=== PATIENT | female | born 1930 | race Caucasian/White ===

== ENCOUNTER 2016-03-13 17:15 | Observation (INO) | payer MEDICARE ==
[~2016-03-13] VITALS: Ht 175.3 cm; Wt 81.8 kg
[~2016-03-13 17:15] MED LIST: ALLEGRA180 MG PO; BACTRIM 400-801 TAB PO; BUPROBAN150 MG PO; CATAPRES0.1 MG PO; CIPRO500 MG PO; COZAAR100 MG PO; DEXILANT60 MG PO; FLOVENT DISKU250 MCG INH; IPRAT-ALBUT 0.5-3 ML UPD; LEVAQUIN500 MG PO; LYRICA100 MG PO; MELATONIN 3 MG1 TAB PO; MYSOLINE250 MG PO; NEURONTIN 300300 MG PO; NORCO 10/325 TA1 TA1 PO; PEPCID20 MG PO; PHENERGAN25 M1 PO; PRILOSEC20 MG PO; PROAIR HFA8.5 GM INH; PROZAC20 MG PO; REMERON15 MG PO; SEPTRA DS TABLE1 TAB PO; SINGULAIR10 MG; TOPROL XL25 MG PO; VITAMIN D31000 UNIT PO; WELLBUTRIN XL150 M1 PO; ZANAFLEX4 MG; ZANAFLEX4 MG PO
[2016-03-13 18:48] LABS: BASOPHILS 0.4 % (0.0-2.0); EOSINOPHILS 3.2 % (0-7); HEMATOCRIT 38.2 % (36.0-48.0); HEMOGLOBIN 12.4 g/dL (12-16); IMMATURE GRANULOCYTES 0.1 % (0-5); LYMPHOCYTES 30.5 % (15-50); MCH 29.8 pg (26.0-34.0); MCHC 32.5 g/dL (31.0-37.0); MCV 91.8 fL (80.0-100.0); MEAN PLATELET VOLUME 11.1 fL (7.4-10.4); MONOCYTES 14.2 % (2-11); NEUTROPHILS 51.6 % (40-80); PLATELET COUNT 194 10x3/uL (130-400); RBC 4.16 10x6/uL (4.00-5.40); RDW 13.7 % (11.5-14.5); WBC 6.8 10x3/uL (4.8-10.8)
[2016-03-13 19:15] LABS: INR 1.05 (0.85-1.17); PROTIME 13.5 SECONDS (11.6-15.0)
[2016-03-13 19:15] LABS: APPEARANCE CLEAR (CLEAR); BACTERIA MODERATE /hpf (NONE SEEN); BILIRUBIN NEGATIVE (NEGATIVE); COLOR YELLOW (YELLOW); GLUCOSE NEGATIVE (NEGATIVE); KETONE NEGATIVE (NEGATIVE); LEUKOCYTE ESTERASE TRACE (NEGATIVE); NITRITE NEGATIVE (NEGATIVE); PROTEIN NEGATIVE (NEGATIVE); RED CELLS - URINE 0-5 /hpf (0-5); UROBILINOGEN NORMAL (NORMAL)
[2016-03-13 19:16] LABS: APTT 28.3 SECONDS (22.8-39.4)
[2016-03-13 19:24] LABS: ALBUMIN 3.3 g/dL (3.4-5.0); BILIRUBIN - TOTAL 0.2 mg/dL (0.2-1.3); CALCIUM 8.3 mg/dL (8.5-10.1); CARBON DIOXIDE 26.8 mmol/L (21.0-32.0); POTASSIUM - SERUM 3.8 mmol/L (3.5-5.1); PROTEIN - SERUM 6.2 g/dL (6.4-8.2)
--- NOTE | 2016-03-13 22:41 | NUR ---
RECEIVED REPORT FROM YAMIL PAN IN ER. WAITING FOR PTS ARRIVAL.
--- NOTE | 2016-03-13 23:27 | NUR ---
PT RECEIVED VIA STRETCHER, AWAKE, ALERT, ORIENTED, REQUIRES MINIMAL ASSIST WITH AMBULATING, USES A WALKER AT HOME. PT DID BRING HER OWN C-PAP THAT SHE USES EVERY NIGHT FOR SLEEP. FAMILY AT BEDSIDE, ALL GOOD HISTORIANS. PT STATES SHE IS FEELING BETTER NOW, THAT HER HEART DOES NOT FEEL LIKE IT IS RACING AT THIS TIME, DENIES PALPITATIONS. TELEMETRY PLACED ON PT, DENIES ANY ACUTE NEEDS. SHE IS VISITING WITH FAMILY AT THIS TIME. CONTINUE TO MONITOR CLOSELY. BED LOW, CALL LIGHT IN REACH, SIDE RAILS X 2, HOB 30 DEGREES.
[2016-03-13 23:30] VITALS: BP 156/69; Ht 175.3 cm; Wt 81.8 kg
[2016-03-14] VITALS: BP 154/59
--- NOTE | 2016-03-14 00:45 | NUR ---
ASSISTED PT TO BATHROOM, ALERT, ORIENTED, DENIES ANY ACUTE NEEDS. CONTINUE TO MONITOR CLOSELY. PT RETURNED TO BED WITH MINIMAL ASSIST, PLACED HER OWN C-PAP APPROPRIATELY AND STATED SHE WAS READY TO GO TO SLEEP. CONTINUE TO MONITOR CLOSELY. BED LOW, CALL LIGHT IN HAND, DEMONSTRATED TO PT HOW AND WHEN TO USE IT, HOB 10 DEGREES, SIDE RAILS X 2.
[2016-03-14 04:00] VITALS: BP 149/66
--- NOTE | 2016-03-14 04:51 | NUR ---
PT LYING IN BED ON LEFT SIDE, EYES CLOSED, RESPIRATIONS EVEN AND UNLABORED, CALL LIGHT IN REACH, SIDE RAILS X 2, HOB 10 DEGREES. CONTINUE TO MONITOR CLOSELY.
[2016-03-14 07:46] VITALS: BP 128/45
--- NOTE | 2016-03-14 10:07 | NUR ---
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 PT IS IN PROCESS OF BEING DISCHARGED AND STATES SHE WILL TAKE HER MEDS FROM HOME. NO FURTHER NEEDS AT THIS TIME. CL IN REACH, BED IN LOWEST, SIDE RAILS X2. WILL CTM.
[2016-03-14] MEDS ORDERED: SINGULAIR10 MG PO (10:59)
[2016-03-14] MEDS ORDERED: BACTRIM DS TABL1 TAB PO (11:00)
[2016-03-14] MEDS ORDERED: BETAPACE 80 MG80 MG PO (11:01)
[2016-03-14 11:37] VITALS: BP 129/59
--- NOTE | 2016-03-14 12:09 | NUR ---
D/C PTS R.FA PIV WITH CATHETER TIP FULLY INTACT. DISCHARGE PAPERS SIGNED AND TEACHING COMPLETED. PT READY TO LEAVE WITH HER FAMILY. NO FURTHER NEEDS.
--- NOTE | 2016-03-17 16:40 | DS ---
PATIENT:MAKENNA JIN :34 MEDICAL RECORD: [id number] DISCHARGE SUMMARY ADMISSION DATE: 03/13/16 DISCHARGE DATE: 03/14/16 DISCHARGE DIAGNOSES: 1. Atrial fibrillation with rapid ventricular response. 2. Chronic obstructive pulmonary disease. 3. Urinary tract infection. HOSPITAL COURSE: Mrs. Jin presents with atrial fibrillation with rapid ventricular response, given 1 dose of sotalol and 1 dose of Cardizem, converted to sinus rhythm and was discharged home with the addition of sotalol 80 mg b.i.d. to her medical regimen. She was not on Multaq previously. They had considered starting Multaq, but will use the sotalol as it works as she well has urinary tract infection, which we treated with Bactrim. She will follow up with [facility] in 1 month. TRANSINT:[id number] Voice Confirmation ID: [id number] DOCUMENT ID: [id number] PAVEL RASHID MD at 1640 CC: [id number] DICTATION DATE: 03/14/16919 OIL [employer] GAS SUPERINTENDENT: 03/14/16 0935 DIS IN 03/14/16 [id number] [place] [address]
== END 2016-03-14 12:11 | disposition home or self-care (01) ==
LOC: D.ER 17:15 → D.M2 18:13 → OBSVTIME 18:13 → D.M2 03-14 12:11
PROVIDERS: Emergency Medicine; Nurse Practitioner Acute Care; ADMIT Internal Medicine Interventional Cardiology
DX: I48.91 Unspecified atrial fibrillation (principal); I48.92 Unspecified atrial flutter; G62.9 Polyneuropathy, unspecified; G47.33 Obstructive sleep apnea (adult) (pediatric); I10 Essential (primary) hypertension; N39.0 Urinary tract infection, site not specified; J44.9 Chronic obstructive pulmonary disease, unspecified

== ENCOUNTER 2016-05-06 12:13 | Emergency (ER) | payer MEDICARE ==
[2016-03-13 23:30] VITALS: BMI 26.6
[~2016-05-06 12:13] MED LIST changes: +BACTRIM DS TABL1 TAB PO; +BETAPACE 80 MG80 MG PO; +SINGULAIR10 MG PO
[2016-05-06 13:01] LABS: APPEARANCE CLEAR (CLEAR); BILIRUBIN NEGATIVE (NEGATIVE); COLOR YELLOW (YELLOW); GLUCOSE NEGATIVE (NEGATIVE); KETONE NEGATIVE (NEGATIVE); LEUKOCYTE ESTERASE NEGATIVE (NEGATIVE); NITRITE NEGATIVE (NEGATIVE); PROTEIN NEGATIVE (NEGATIVE); UROBILINOGEN NORMAL (NORMAL)
[2016-05-06 13:33] LABS: BASOPHILS 0.2 % (0.0-2.0); EOSINOPHILS 0.8 % (0-7); HEMATOCRIT 38.4 % (36.0-48.0); HEMOGLOBIN 12.5 g/dL (12-16); IMMATURE GRANULOCYTES 0.3 % (0-5); LYMPHOCYTES 4.5 % (15-50); MCH 30.3 pg (26.0-34.0); MCHC 32.6 g/dL (31.0-37.0); MCV 93.2 fL (80.0-100.0); MEAN PLATELET VOLUME 11.6 fL (7.4-10.4); MONOCYTES 5.5 % (2-11); NEUTROPHILS 88.7 % (40-80); PLATELET COUNT 156 10x3/uL (130-400); RBC 4.12 10x6/uL (4.00-5.40); RDW 13.5 % (11.5-14.5); WBC 13.3 10x3/uL (4.8-10.8)
[2016-05-06 14:12] LABS: ALBUMIN 3.9 g/dL (3.4-5.0); ANION GAP 13.4 mmol/L (8-16); BILIRUBIN - TOTAL 0.4 mg/dL (0.2-1.3); CREATININE - SERUM 0.8 mg/dL (0.6-1.3); POTASSIUM - SERUM 4.4 mmol/L (3.5-5.1); PROTEIN - SERUM 7.5 g/dL (6.4-8.2)
== END 2016-05-06 14:53 | disposition home or self-care (01) ==
LOC: D.ER 12:13
PROVIDERS: Family Medicine
DX: R11.10 Vomiting, unspecified (principal); N39.0 Urinary tract infection, site not specified; R41.0 Disorientation, unspecified; R05 Cough; J44.9 Chronic obstructive pulmonary disease, unspecified; M79.7 Fibromyalgia; F17.200 Nicotine dependence, unspecified, uncomplicated

== ENCOUNTER 2016-10-04 16:17 | Observation (INO) | payer MEDICARE ==
--- NOTE | ~2016-10-04 | HP ---
PATIENT: MAKENNA VALENZUELA MEDICAL RECORD: [id number] ACCOUNT: [id number] LOCATION:[address] : 34 ADMISSION DATE: 10/04/16 HISTORY AND PHYSICAL EXAMINATION DATE ASSIGNED TO OBSERVATION: 10/04/2016. HISTORY OF PRESENT ILLNESS: This is an 86-year-old female who had acute onset of chest pain this evening rated as 7/10. The pain was constant, started in the left chest and radiated to her back between her shoulder blades. In the ER, she was found to be in atrial fibrillation with a ventricular rate of 140. Her troponin was less than 0.017. Rest of the labs looked good. She spontaneously converted to normal sinus while in the ER, but she will be observed overnight with serial cardiac enzymes and telemetry. PAST MEDICAL HISTORY: She has atrial fibrillation followed by Dr. Musa. She has arthritis, depression/anxiety, hypertension, hyperlipidemia, reflux, chronic back pain, essential tremor, and osteoporosis. PAST SURGICAL HISTORY: Bilateral total knee replacements, left hip replacement, and cholecystectomy. ALLERGIES: ATORVASTATIN, HYDROCHLOROTHIAZIDE, ALDARA, METHYLDOPA. HOME MEDICATIONS: Include losartan 100 mg once a day, Betapace 80 mg twice a day, Neurontin 300 mg at bedtime, Remeron 15 mg at bedtime, primidone 50 mg and she takes 150 mg at bedtime, Singulair 10 mg at bedtime, Pepcid 40 mg twice a day, Prilosec 20 mg once a day, melatonin 3 mg at bedtime, Keerthi 180 mg q.h.s., and hydrocodone 10/325 q. 6 hours p.r.n. pain. FAMILY HISTORY: Father of throat cancer. Mother of oral cancer. SOCIAL HISTORY: She is , lives with family, retired. HABITS: No tobacco, alcohol or drugs. REVIEW OF SYSTEMS: GENERAL: No major weight changes. HEENT: No particular sinus or allergy problems. RESPIRATORY: No known asthma or COPD. CARDIAC: See above history. GASTROINTESTINAL: She has reflux. GENITOURINARY: No significant problems there. MUSCULOSKELETAL: Chronic back pain, osteoporosis. NEUROLOGIC: She has benign tremor. PSYCHIATRIC: She has depression and anxiety. PHYSICAL EXAMINATION: Tonight: VITAL SIGNS: Temperature 98.3, pulse 60, blood pressure 106/61, respirations 20. GENERAL: She is awake, alert, does not appear in acute distress, currently in no pain. HEENT: Grossly within normal limits. NECK: Supple. No JVD or bruit. HEART: Regular rate and rhythm without murmur. HISTORY AND PHYSICAL [id number] BIANCAMAKENNA LUNGS: Clear. ABDOMEN: Soft, flat, nontender. EXTREMITIES: She has 1+ pitting edema. BACK: She has generalized tenderness in the lumbar spine. LABORATORY DATA: CBC with a white count 6600, hemoglobin 13.5, hematocrit 41.0. Basic metabolic panels are all normal. LFTs are okay. Troponin is less than 0.017. Total cholesterol 203, triglycerides 210, HDL 50, LDL 111. IMAGING: Chest x-ray shows nothing acute. ASSESSMENT: 1. Chest pain. 2. Atrial fibrillation with rapid ventricular response. PLAN: We will monitor overnight. Serial cardiac enzymes. Other tests and procedures as warranted. TRANSINT:[id number] Voice Confirmation ID: [id number] DOCUMENT ID: [id number] AARON QUINTANILLA MD CC: [id number] DICTATION DATE: 10/04/162117 RCP: 10/04/162307 ADM IN [facility] [address] [place] [address]
[~2016-10-04 16:17] MED LIST changes: -FLOVENT DISKU250 MCG INH; -IPRAT-ALBUT 0.5-3 ML UPD; -PROAIR HFA8.5 GM INH
[2016-10-04 17:49] LABS: BASOPHILS 0.5 % (0-2); EOSINOPHILS 5.8 % (0-7); HEMOGLOBIN 13.5 g/dL (12-16); IMMATURE GRANULOCYTES 0.2 % (0-5); LYMPHOCYTES 33.1 % (15-50); MCH 30.4 pg (26.0-34.0); MCHC 32.9 g/dL (31.0-37.0); MCV 92.3 fL (80.0-100.0); MEAN PLATELET VOLUME 11.9 fL (7.4-10.4); MONOCYTES 10.1 % (2-11); NEUTROPHILS 50.3 % (40-80); RBC 4.44 10x6/uL (4.00-5.40); RDW 13.8 % (11.5-14.5); WBC 6.6 10x3/uL (4.8-10.8)
[2016-10-04 18:06] LABS: PLATELET COUNT 206 10x3/uL (130-400)
[2016-10-04 18:11] LABS: ALBUMIN 3.4 g/dL (3.4-5.0); ALKALINE PHOSPHATASE 89 U/L (46-116); ALT (SGPT) 24 U/L (10-68); BILIRUBIN - TOTAL 0.22 mg/dL (0.2-1.3); CALC OSMOLALITY 279 mosm/kg (275-300); CALCIUM 8.6 mg/dL (8.5-10.1); CARBON DIOXIDE 25.6 mmol/L (21.0-32.0); CHLORIDE - SERUM 105 mmol/L (98-107); CHOL - HDL RATIO 4.1 ratio (2.3-4.1); CHOLESTEROL, TOTAL 203 mg/dL (0-200); CKMB 0.3 U/L (0.0-3.6); CREATINE KINASE 35 UL (21-215); CREATININE - SERUM 0.8 mg/dL (0.6-1.3); GLUCOSE 104 mg/dL (74-106); HDL CHOLESTEROL 50 mg/dL (32-96); LDL CHOLESTEROL 111 mg/dL (0-100); LDL-HDL RATIO 2.2 ratio (1.5-3.5); POTASSIUM - SERUM 4.2 mmol/L (3.5-5.1); PROTEIN - SERUM 6.9 g/dL (6.4-8.2); SODIUM 140 mmol/L (136-145); TRIGLYCERIDE 210 mg/dL (30-200); UREA NITROGEN 15 mg/dL (7-18); eGFR NON AFRICAN AMERICAN 72 mL/min (90-120)
[2016-10-04 18:12] LABS: TROPONIN-I < 0.017 ng/mL (0.000-0.060)
--- NOTE | 2016-10-04 19:22 | NUR ---
REPORT RECEIVED FROM ER
--- NOTE | 2016-10-04 19:51 | NUR ---
ARRIVED TO FLOOR VIA WHEELCHAIR, ACCOMPANIED BY HOSPITAL STAFF AND FAMILY. PLACED ON TELEMETRY AND ORIENTED TO UNIT. CALL LIGHT IN REACH. SEE NURSE ASSESSMENT. WILL CONTINUE TO MONITOR.
[2016-10-04 20:00] VITALS: BP 112/76
[2016-10-04 23:59] LABS: CREATINE KINASE 29 UL (21-215); TROPONIN-I < 0.017 ng/mL (0.000-0.060)
[2016-10-05 01:25] VITALS: BP 116/56
--- NOTE | 2016-10-05 03:59 | NUR ---
TOE TRIMMER AT BEDSIDE TO OBTAIN VITALS, CALL LIGHT IN REACH. WILL CONTINUE WITH PLAN OF CARE.
[2016-10-05 04:12] VITALS: BP 104/56
[2016-10-05] MEDS ORDERED: FLOVENT DISKU250 MCG INH (06:21)
[2016-10-05] MEDS ORDERED: IPRAT-ALBUT 0.5-3 ML UPD (06:22)
[2016-10-05] MEDS ORDERED: PROAIR HFA8.5 GM INH (06:22)
[2016-10-05 06:27] LABS: CKMB 0.2 U/L (0.0-3.6); CREATINE KINASE 27 UL (21-215)
[2016-10-05 06:31] LABS: TROPONIN-I < 0.017 ng/mL (0.000-0.060)
[2016-10-05 09:25] VITALS: BP 131/54
--- NOTE | 2016-10-05 09:46 | NUR ---
TELEMETRY SB. DAUGHTER AT BS. CALL LIGHT IN REACH. WILL CONT. PLAN OF CARE.
[2016-10-05 12:50] VITALS: BP 104/62
[2016-10-05 12:50] LABS: CKMB 0.2 U/L (0.0-3.6); CREATINE KINASE 31 UL (21-215)
[2016-10-05 13:10] LABS: TROPONIN-I < 0.017 ng/mL (0.000-0.060)
[2016-10-05 13:57] VITALS: Ht 175.3 cm
--- NOTE | 2016-10-05 14:17 | NUR ---
DR. RASHID NOTIFIED OF C/O C/P.
[2016-10-05 16:53] VITALS: BP 152/74
--- NOTE | 2016-10-05 19:39 | NUR ---
RESUMED CARE OF PT, LYING IN BED RESPIRATIONS EVEN AND UNLABORED ON ROOM AIR. 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 PLAN OF CARE DISCUSSED, CALL LIGHT IN REACH. WILL CONTINUE TO MONITOR. SEE NURSE ASSESSMENT.
[2016-10-05 21:16] VITALS: BP 134/60
--- NOTE | 2016-10-06 03:11 | NUR ---
LYING IN BED WITH EYES CLOSED, CALL LIGHT IN REACH. WILL CONTINUE TO MONITOR.
[2016-10-06 04:35] VITALS: BP 106/34
[2016-10-06 08:00] VITALS: BP 142/73
--- NOTE | 2016-10-06 11:57 | NUR ---
IV AND TELEMETRY DCD. DC PLANS GIVEN. UNDERSTANDING VOICED. ESCORTED TO CAR BY W/C.
== END 2016-10-06 11:57 | disposition home or self-care (01) ==
LOC: D.ER 16:17 → D.M2 19:19 → OBSVTIME 19:19 → D.M2 10-06 11:57
PROVIDERS: Emergency Medicine; ADMIT Family Medicine
DX: R07.9 Chest pain, unspecified (principal); I48.91 Unspecified atrial fibrillation; F41.8 Other specified anxiety disorders; I10 Essential (primary) hypertension; K21.9 Gastro-esophageal reflux disease without esophagitis; E78.5 Hyperlipidemia, unspecified; G89.29 Other chronic pain; M54.9 Dorsalgia, unspecified; M81.0 Age-related osteoporosis without current pathological fracture; G25.0 Essential tremor

== ENCOUNTER 2016-10-30 21:39 | Emergency (ER) | payer MEDICARE ==
[~2016-10-30 21:39] MED LIST changes: +FLOVENT DISKU250 MCG INH; +IPRAT-ALBUT 0.5-3 ML UPD; +PROAIR HFA8.5 GM INH
[2016-10-30 22:27] LABS: BASOPHILS 0.3 % (0-2); EOSINOPHILS 4.8 % (0-7); HEMATOCRIT 38.2 % (36.0-48.0); HEMOGLOBIN 12.8 g/dL (12-16); IMMATURE GRANULOCYTES 0.2 % (0-5); LYMPHOCYTES 28.9 % (15-50); MCH 30.6 pg (26.0-34.0); MCHC 33.5 g/dL (31.0-37.0); MCV 91.4 fL (80.0-100.0); MEAN PLATELET VOLUME 10.9 fL (7.4-10.4); NEUTROPHILS 54.8 % (40-80); PLATELET COUNT 182 10x3/uL (130-400); RBC 4.18 10x6/uL (4.00-5.40); RDW 13.6 % (11.5-14.5); WBC 6.5 10x3/uL (4.8-10.8)
[2016-10-30 22:50] LABS: ALBUMIN 3.3 g/dL (3.4-5.0); ALKALINE PHOSPHATASE 87 U/L (46-116); ALT (SGPT) 40 U/L (10-68); BILIRUBIN - TOTAL 0.22 mg/dL (0.2-1.3); CALC OSMOLALITY 286 mosm/kg (275-300); CALCIUM 8.3 mg/dL (8.5-10.1); CHLORIDE - SERUM 107 mmol/L (98-107); CREATININE - SERUM 0.7 mg/dL (0.6-1.3); GLUCOSE 132 mg/dL (74-106); POTASSIUM - SERUM 3.8 mmol/L (3.5-5.1); PROTEIN - SERUM 6.8 g/dL (6.4-8.2); SODIUM 143 mmol/L (136-145); UREA NITROGEN 12 mg/dL (7-18); eGFR NON AFRICAN AMERICAN 84 mL/min (90-120)
== END 2016-10-30 23:05 | disposition home or self-care (01) ==
LOC: D.ER 21:39
PROVIDERS: Emergency Medicine
DX: I50.9 Heart failure, unspecified (principal); J44.9 Chronic obstructive pulmonary disease, unspecified; Z79.01 Long term (current) use of anticoagulants; R60.0 Localized edema; R06.00 Dyspnea, unspecified; R06.2 Wheezing

== ENCOUNTER 2016-10-31 11:41 | Emergency (ER) | payer MEDICARE ==
[2016-10-31 12:26] LABS: ALBUMIN 3.7 g/dL (3.4-5.0); ALKALINE PHOSPHATASE 93 U/L (46-116); ALT (SGPT) 40 U/L (10-68); BILIRUBIN - TOTAL 0.46 mg/dL (0.2-1.3); CALC OSMOLALITY 276 mosm/kg (275-300); CALCIUM 8.8 mg/dL (8.5-10.1); CARBON DIOXIDE 24.6 mmol/L (21.0-32.0); CHLORIDE - SERUM 103 mmol/L (98-107); CREATININE - SERUM 0.7 mg/dL (0.6-1.3); GLUCOSE 131 mg/dL (74-106); POTASSIUM - SERUM 4.2 mmol/L (3.5-5.1); PROTEIN - SERUM 7.4 g/dL (6.4-8.2); SODIUM 138 mmol/L (136-145); UREA NITROGEN 10 mg/dL (7-18); eGFR NON AFRICAN AMERICAN 84 mL/min (90-120)
[2016-10-31 12:45] LABS: BASOPHILS 0.3 % (0-2); EOSINOPHILS 2.3 % (0-7); HEMATOCRIT 41.5 % (36.0-48.0); HEMOGLOBIN 14.1 g/dL (12-16); IMMATURE GRANULOCYTES 0.1 % (0-5); LYMPHOCYTES 17.9 % (15-50); MCH 30.7 pg (26.0-34.0); MCV 90.4 fL (80.0-100.0); MEAN PLATELET VOLUME 11.7 fL (7.4-10.4); MONOCYTES 8.5 % (2-11); NEUTROPHILS 70.9 % (40-80); PLATELET COUNT 208 10x3/uL (130-400); RBC 4.59 10x6/uL (4.00-5.40); RDW 13.8 % (11.5-14.5)
== END 2016-10-31 17:11 | disposition home or self-care (01) ==
LOC: D.ER 11:41
PROVIDERS: Family Medicine
DX: I10 Essential (primary) hypertension (principal)

== ENCOUNTER → 2017-03-05 10:50 | Outpatient (CLI) | payer MEDICARE | END | disposition home or self-care (01) | LOC: D.MRI 10:50 | DX: G31.84 Mild cognitive impairment of uncertain or unknown etiology (principal) ==

== ENCOUNTER 2017-07-08 11:04 | Inpatient (IN) | payer MEDICARE ==
[~2017-07-08] VITALS: Ht 175.3 cm; Wt 79.8 kg
--- NOTE | ~2017-07-08 | EC ---
PATIENT:MAKENNA VALENZUELA DATE OF SERVICE: 07/08/17 SEX: F MEDICAL RECORD: [id number] DATE OF : 34 LOCATION:D[address] AGE OF PATIENT: 87 ADMISSION DATE: 07/08/17 REFERRING PHYSICIAN: INTERPRETING PHYSICIAN: PAVEL STREET MD ECHOCARDIOGRAM REPORT ECHO CHARGES 4 ECHO COMPLETE Date: 07/10 CLINICAL DIAGNOSIS: AFIB ECHOCARDIOGRAPHIC MEASUREMENTS (adult normal given) AC root (d.<3.7cm) 3.5 cm LV Septum d (<1.2 cm> 1.6 cm Valve Excursion 1.6 cm LV Septum (systole) 1.8 cm Left Atria (s.<4.0cm> 3.9 cm LVPW d(<1.2cm) 1.6 cm RV (d.<2.3cm) 3.4 cm LVPW (sytole) 1.8 cm LV diastole(<5.6CM) 5.7 cm MV E-F(>70mm/sec) cm LV systole 3.6 cm LVOT Diameter 1.7 cm MV exc.(>10mm) 1.5 cm Est.ejection fraction (50-75%) % DOPPLER: LVIT cm/sec A 89.0 cm/sec E 103 cm/sec LA cm/sec RVSP 52 mmHg LVOT 96 cm/sec AOP1/2T m/s Asc. Ao 151 cm/sec RVOT 85 cm/sec RA cm/sec PA 134 cm/sec AV Gradient Peak 9.12 mmHg AV Mean 4.80 mmHg AV Area 1.6 cm MV Gradient Peak 6.38 mmHg MV Mean 2.21 mmHg MV Area cm COMMENTS: Wrapper Hand: Garrett MCKEON Manager Storage: [address] TAPE# PACS Pericardial Effusion N DATE OF SERVICE: PROCEDURE: Echocardiogram. FINDINGS: 1. Left ventricular chamber size is within normal limits. Left ventricular systolic function is normal. Overall ejection fraction estimated at 60%. 2. Left atrium, right atrium, and right ventricle chamber sizes are within normal limits. 3. Valvular structures have normal structure and motion. ECHOCARDIOGRAM REPORT [id number] MAKENNA VALENZUELA 4. Doppler interrogation only reveals mild mitral regurgitation, mild tricuspid regurgitation, no other valvular insufficiency or stenosis. Pulmonary systolic pressure is elevated, estimated at 52 mmHg. 5. No evidence of pericardial effusion or left ventricular thrombus. 6. No cardiac source of neurologic emboli. TRANSINT:[id number] Voice Confirmation ID: [id number] DOCUMENT ID: [id number] PAVEL STREET MD at 1849 CC: [id number] DICTATION DATE: 07/10/17 1237 SUPERVISOR TITLE: 07/10/17 1347 ADM IN [facility] [address] [id number]
[2017-07-08 11:54] LABS: APPEARANCE HAZY (CLEAR); BILIRUBIN NEGATIVE (NEGATIVE); COLOR YELLOW (YELLOW); GLUCOSE NEGATIVE (NEGATIVE); KETONE NEGATIVE (NEGATIVE); NITRITE NEGATIVE (NEGATIVE); PROTEIN TRACE mg/dL (NEGATIVE); UROBILINOGEN NORMAL (NORMAL)
[2017-07-08 12:00] LABS: BASOPHILS 0.1 % (0-2); EOSINOPHILS 0.2 % (0-7); HEMATOCRIT 39.1 % (36.0-48.0); IMMATURE GRANULOCYTES 0.4 % (0-5); LYMPHOCYTES 4.1 % (15-50); MCH 30.5 pg (26.0-34.0); MCHC 33.2 g/dL (31.0-37.0); MCV 91.8 fL (80.0-100.0); MEAN PLATELET VOLUME 10.5 fL (7.4-10.4); MONOCYTES 6.4 % (2-11); NEUTROPHILS 88.8 % (40-80); PLATELET COUNT 207 10x3/uL (130-400); RBC 4.26 10x6/uL (4.00-5.40); RDW 13.4 % (11.5-14.5); WBC 18.2 10x3/uL (4.8-10.8)
[2017-07-08 12:04] LABS: BACTERIA MODERATE /hpf (NONE SEEN); EPITHELIAL CELLS RARE /hpf (0-5); RED CELLS - URINE 0-5 /hpf (0-5)
[2017-07-08 12:18] LABS: ALBUMIN 3.7 g/dL (3.4-5.0); ANION GAP 13.8 mmol/L (8-16); BILIRUBIN - TOTAL 0.5 mg/dL (0.2-1.3); CARBON DIOXIDE 28.7 mmol/L (21.0-32.0); CREATININE - SERUM 0.9 mg/dL (0.6-1.3); POTASSIUM - SERUM 4.5 mmol/L (3.5-5.1)
[2017-07-08] MEDS ORDERED: OMEPRAZOLE40 MG PO (16:14)
[2017-07-08] MEDS ORDERED: COLACE100 MG PO (16:16)
[2017-07-08] MEDS ORDERED: MUCINEX600 MG PO (16:17)
[2017-07-08 16:18] VITALS: BP 143/54
[2017-07-08] MEDS ORDERED: CATAPRES0.1 MG PO (16:18)
[2017-07-08] MEDS ORDERED: ZOFRAN4 MG PO (16:19)
[2017-07-08 16:25] VITALS: BMI 26.0
[2017-07-08 20:43] VITALS: BP 120/51
[2017-07-09 00:10] VITALS: BP 99/46
[2017-07-09 05:12] VITALS: BP 162/56
[2017-07-09 06:05] LABS: BASOPHILS 0.2 % (0-2); EOSINOPHILS 2.8 % (0-7); HEMATOCRIT 34.1 % (36.0-48.0); HEMOGLOBIN 11.1 g/dL (12-16); IMMATURE GRANULOCYTES 0.2 % (0-5); LYMPHOCYTES 11.3 % (15-50); MCH 30.3 pg (26.0-34.0); MCHC 32.6 g/dL (31.0-37.0); MCV 93.2 fL (80.0-100.0); MONOCYTES 9.3 % (2-11); NEUTROPHILS 76.2 % (40-80); PLATELET COUNT 166 10x3/uL (130-400); RBC 3.66 10x6/uL (4.00-5.40); RDW 13.8 % (11.5-14.5)
[2017-07-09 06:14] LABS: WBC 10.6 10x3/uL (4.8-10.8)
[2017-07-09 06:24] LABS: ANION GAP 10.9 mmol/L (8-16); CALCIUM 8.5 mg/dL (8.5-10.1); CARBON DIOXIDE 28.6 mmol/L (21.0-32.0); CREATININE - SERUM 0.8 mg/dL (0.6-1.3)
[2017-07-09 06:29] LABS: POTASSIUM - SERUM 3.5 mmol/L (3.5-5.1)
[2017-07-09 09:49] VITALS: BP 114/54
[2017-07-09 12:37] VITALS: BMI 26.0
[2017-07-09 14:56] VITALS: BP 151/71
[2017-07-09 17:32] VITALS: BP 158/70
[2017-07-09 20:38] VITALS: BP 175/69
[2017-07-09 21:24] LABS: CKMB 0.5 U/L (0.0-3.6); CREATINE KINASE 31 UL (21-215)
[2017-07-09 21:26] LABS: TROPONIN-I < 0.017 ng/mL (0.000-0.060)
[2017-07-10 02:56] LABS: BASOPHILS 0.1 % (0-2); EOSINOPHILS 4.2 % (0-7); HEMATOCRIT 32.3 % (36.0-48.0); HEMOGLOBIN 10.6 g/dL (12-16); IMMATURE GRANULOCYTES 0.1 % (0-5); LYMPHOCYTES 19.9 % (15-50); MCH 30.2 pg (26.0-34.0); MCHC 32.8 g/dL (31.0-37.0); MEAN PLATELET VOLUME 10.4 fL (7.4-10.4); MONOCYTES 13.2 % (2-11); NEUTROPHILS 62.5 % (40-80); PLATELET COUNT 154 10x3/uL (130-400); RBC 3.51 10x6/uL (4.00-5.40); RDW 13.4 % (11.5-14.5)
[2017-07-10 02:57] LABS: WBC 6.7 10x3/uL (4.8-10.8)
[2017-07-10 03:22] LABS: CALC OSMOLALITY 282 mosm/kg (275-300); CALCIUM 8.1 mg/dL (8.5-10.1); CARBON DIOXIDE 27.3 mmol/L (21.0-32.0); CHLORIDE - SERUM 107 mmol/L (98-107); CKMB 0.3 U/L (0.0-3.6); CREATINE KINASE 30 UL (21-215); GLUCOSE 122 mg/dL (74-106); POTASSIUM - SERUM 3.5 mmol/L (3.5-5.1); SODIUM 142 mmol/L (136-145); UREA NITROGEN 11 mg/dL (7-18); eGFR NON AFRICAN AMERICAN 56 mL/min (90-120)
[2017-07-10 03:26] LABS: TROPONIN-I < 0.017 ng/mL (0.000-0.060)
[2017-07-10 04:06] VITALS: BP 151/60
[2017-07-10 08:36] VITALS: Ht 175.3 cm; Wt 79.8 kg
[2017-07-10 09:02] VITALS: BP 166/70
[2017-07-10 10:25] LABS: CREATINE KINASE 35 UL (21-215)
[2017-07-10 10:26] LABS: TROPONIN-I < 0.017 ng/mL (0.000-0.060)
[2017-07-10 13:15] VITALS: BP 205/92
[2017-07-10 17:08] VITALS: BP 169/73
[2017-07-10 22:24] VITALS: BP 168/67
[2017-07-11 06:01] VITALS: BP 160/68
[2017-07-11] MEDS ORDERED: BACTRIM DS TABL1 TAB PO (08:17)
[2017-07-11 08:24] VITALS: BP 94/68
[2017-07-11 12:02] VITALS: BP 139/76
== END 2017-07-11 13:00 | disposition home or self-care (01) | DRG 690 ==
LOC: D.ER 11:04 → D.MS 14:43 → D.EDHOLD 14:43 → D.MS 15:08
PROVIDERS: Family Medicine
DX: N12 Tubulo-interstitial nephritis, not specified as acute or chronic (principal); I48.0 Paroxysmal atrial fibrillation; I10 Essential (primary) hypertension; R07.9 Chest pain, unspecified

== ENCOUNTER 2017-07-12 08:00 | Inpatient (IN) | payer MEDICARE ==
[~2017-07-12] VITALS: Ht 175.3 cm; Wt 79.8 kg
[~2017-07-12 08:00] MED LIST changes: +COLACE100 MG PO; +MUCINEX600 MG PO; +OMEPRAZOLE40 MG PO; +ZOFRAN4 MG PO
[2017-07-12 08:51] LABS: APPEARANCE CLEAR (CLEAR); BILIRUBIN NEGATIVE (NEGATIVE); COLOR YELLOW (YELLOW); GLUCOSE NEGATIVE (NEGATIVE); KETONE NEGATIVE (NEGATIVE); NITRITE NEGATIVE (NEGATIVE); PROTEIN NEGATIVE (NEGATIVE); SPECIFIC GRAVITY 1.015 (1.005-1.020); UROBILINOGEN NORMAL (NORMAL)
[2017-07-12 08:54] LABS: BACTERIA FEW /hpf (NONE SEEN); EPITHELIAL CELLS 0-5 /hpf (0-5); MUCUS <1+ /lpf (NONE SEEN); RED CELLS - URINE 0-5 /hpf (0-5); WHITE CELLS - URINE 0-5 /hpf (0-5)
[2017-07-12 08:59] LABS: HEMATOCRIT 36.1 % (36.0-48.0); HEMOGLOBIN 12.2 g/dL (12-16); MCH 30.7 pg (26.0-34.0); MCHC 33.8 g/dL (31.0-37.0); MCV 90.7 fL (80.0-100.0); MEAN PLATELET VOLUME 10.4 fL (7.4-10.4); PLATELET COUNT 186 10x3/uL (130-400); RBC 3.98 10x6/uL (4.00-5.40); RDW 13.4 % (11.5-14.5); WBC 21.3 10x3/uL (4.8-10.8)
[2017-07-12 09:20] LABS: ALBUMIN 3.2 g/dL (3.4-5.0); ANION GAP 13.6 mmol/L (8-16); BILIRUBIN - TOTAL 0.52 mg/dL (0.2-1.3); CALCIUM 8.6 mg/dL (8.5-10.1); CARBON DIOXIDE 26.9 mmol/L (21.0-32.0); CREATININE - SERUM 0.9 mg/dL (0.6-1.3); MAGNESIUM - SERUM 1.4 mg/dL (1.8-2.4); POTASSIUM - SERUM 3.5 mmol/L (3.5-5.1); PROTEIN - SERUM 7.1 g/dL (6.4-8.2)
[2017-07-12 09:23] LABS: EOSINOPHILS 1 % (0-7); LYMPHOCYTES 5 % (15-50); MONOCYTES 3 % (2-11); NEUTROPHILS 79 % (40-80); PLATELET ESTIMATE NORMAL
[2017-07-12 13:15] VITALS: BP 137/60
[2017-07-12 16:26] VITALS: BP 149/66
[2017-07-12 17:56] VITALS: BP 137/60; Ht 175.3 cm; Wt 79.8 kg
[2017-07-12 22:29] VITALS: BP 111/57
[2017-07-13 04:53] VITALS: BP 124/53
[2017-07-13 05:27] LABS: BASOPHILS 0.1 % (0-2); EOSINOPHILS 3.8 % (0-7); HEMATOCRIT 32.1 % (36.0-48.0); HEMOGLOBIN 10.3 g/dL (12-16); IMMATURE GRANULOCYTES 0.2 % (0-5); LYMPHOCYTES 12.4 % (15-50); MCH 29.7 pg (26.0-34.0); MCHC 32.1 g/dL (31.0-37.0); MCV 92.5 fL (80.0-100.0); MEAN PLATELET VOLUME 10.3 fL (7.4-10.4); MONOCYTES 6.9 % (2-11); NEUTROPHILS 76.6 % (40-80); PLATELET COUNT 160 10x3/uL (130-400); RBC 3.47 10x6/uL (4.00-5.40); RDW 13.7 % (11.5-14.5)
[2017-07-13 05:40] LABS: WBC 8.6 10x3/uL (4.8-10.8)
[2017-07-13 05:47] LABS: ANION GAP 11.1 mmol/L (8-16); CALCIUM 8.4 mg/dL (8.5-10.1); CARBON DIOXIDE 28.3 mmol/L (21.0-32.0); CREATININE - SERUM 0.9 mg/dL (0.6-1.3); POTASSIUM - SERUM 3.4 mmol/L (3.5-5.1)
[2017-07-13 08:26] VITALS: BP 138/63
[2017-07-13 12:47] VITALS: BP 150/71
[2017-07-13 16:17] VITALS: BP 143/66
[2017-07-13 20:00] VITALS: BP 144/71
[2017-07-14] VITALS: BP 119/56
[2017-07-14 04:00] VITALS: BP 93/45
[2017-07-14 06:25] LABS: BASOPHILS 0.2 % (0-2); EOSINOPHILS 4.6 % (0-7); HEMATOCRIT 32.8 % (36.0-48.0); HEMOGLOBIN 10.5 g/dL (12-16); IMMATURE GRANULOCYTES 0.2 % (0-5); LYMPHOCYTES 22.1 % (15-50); MCH 29.5 pg (26.0-34.0); MCV 92.1 fL (80.0-100.0); MEAN PLATELET VOLUME 10.5 fL (7.4-10.4); MONOCYTES 12.5 % (2-11); NEUTROPHILS 60.4 % (40-80); PLATELET COUNT 186 10x3/uL (130-400); RBC 3.56 10x6/uL (4.00-5.40); RDW 13.6 % (11.5-14.5)
[2017-07-14 06:32] LABS: ANION GAP 9.1 mmol/L (8-16); CALCIUM 8.8 mg/dL (8.5-10.1); CARBON DIOXIDE 29.5 mmol/L (21.0-32.0); CREATININE - SERUM 0.9 mg/dL (0.6-1.3); WBC 5.9 10x3/uL (4.8-10.8)
[2017-07-14 06:37] LABS: POTASSIUM - SERUM 4.6 mmol/L (3.5-5.1)
[2017-07-14 07:42] VITALS: BP 105/51
[2017-07-14 12:18] VITALS: BP 144/72
[2017-07-14] MEDS ORDERED: LEVAQUIN750 MG PO (15:05)
[2017-07-14] MEDS ORDERED: ZOFRAN ODT4 MG/UDTAB PO (15:06)
[2017-07-14] MEDS ORDERED: FLORANEX / LACT1 TAB PO (15:07)
[2017-07-14 15:49] VITALS: BP 143/65
== END 2017-07-14 18:45 | disposition home or self-care (01) | DRG 190 ==
LOC: D.ER 08:00 → D.MS 11:29 → D.EDHOLD 11:29 → D.MS 12:01
PROVIDERS: Emergency Medicine; Family Medicine
DX: J44.0 Chronic obstructive pulmonary disease with (acute) lower respiratory infection (principal); J18.9 Pneumonia, unspecified organism; N12 Tubulo-interstitial nephritis, not specified as acute or chronic; J44.9 Chronic obstructive pulmonary disease, unspecified; I10 Essential (primary) hypertension; I48.91 Unspecified atrial fibrillation; R53.1 Weakness

== ENCOUNTER 2017-08-11 09:35 | Emergency (ER) | payer MEDICARE ==
[~2017-08-11] VITALS: Ht 175.3 cm; Wt 81.8 kg
[~2017-08-11 09:35] MED LIST changes: +FLORANEX / LACT1 TAB PO; +LEVAQUIN750 MG PO; +ZOFRAN ODT4 MG/UDTAB PO
[2017-08-11 09:50] VITALS: Ht 175.3 cm; Wt 81.8 kg
[2017-08-11 10:06] LABS: BASOPHILS 0.4 % (0-2); EOSINOPHILS 4.4 % (0-7); HEMATOCRIT 39.4 % (36.0-48.0); HEMOGLOBIN 12.8 g/dL (12-16); IMMATURE GRANULOCYTES 0.2 % (0-5); LYMPHOCYTES 36.6 % (15-50); MCH 30.5 pg (26.0-34.0); MCHC 32.5 g/dL (31.0-37.0); MCV 93.8 fL (80.0-100.0); MEAN PLATELET VOLUME 11.1 fL (7.4-10.4); MONOCYTES 8.1 % (2-11); NEUTROPHILS 50.3 % (40-80); PLATELET COUNT 169 10x3/uL (130-400); RDW 13.4 % (11.5-14.5); WBC 5.7 10x3/uL (4.8-10.8)
[2017-08-11 10:16] LABS: ALBUMIN 3.2 g/dL (3.4-5.0); ALKALINE PHOSPHATASE 86 U/L (46-116); ALT (SGPT) 20 U/L (10-68); BILIRUBIN - TOTAL 0.24 mg/dL (0.2-1.3); CALC OSMOLALITY 288 mosm/kg (275-300); CALCIUM 8.9 mg/dL (8.5-10.1); CARBON DIOXIDE 25.3 mmol/L (21.0-32.0); CHLORIDE - SERUM 107 mmol/L (98-107); CREATININE - SERUM 0.9 mg/dL (0.6-1.3); POTASSIUM - SERUM 3.8 mmol/L (3.5-5.1); PROTEIN - SERUM 6.8 g/dL (6.4-8.2); SODIUM 142 mmol/L (136-145); UREA NITROGEN 12 mg/dL (7-18); eGFR NON AFRICAN AMERICAN 63 mL/min (90-120)
[2017-08-11 10:17] LABS: GLUCOSE 209 mg/dL (74-106)
[2017-08-11 10:19] LABS: CREATINE KINASE 31 UL (21-215)
[2017-08-11 10:27] LABS: TROPONIN-I < 0.017 ng/mL (0.000-0.060)
[2017-08-11 10:35] LABS: T4 THYROXINE 5.4 ug/dL (4.7-13.3); THYROID STIMULATING HORMONE 3.31 uIU/mL (0.36-3.74)
[2017-08-11] MEDS ORDERED: BETAPACE 80 MG80 MG PO (11:41)
[2017-08-11 12:37] VITALS: BP 128/62
== END 2017-08-11 12:38 | disposition home or self-care (01) ==
LOC: D.ER 09:35
PROVIDERS: Emergency Medicine
DX: I47.1 Supraventricular tachycardia (principal); R00.2 Palpitations; I10 Essential (primary) hypertension; J44.9 Chronic obstructive pulmonary disease, unspecified

== ENCOUNTER 2017-09-27 18:33 | Emergency (ER) | payer MEDICARE ==
[~2017-09-27] VITALS: Ht 175.3 cm; Wt 81.4 kg
[2017-09-27 18:39] VITALS: Ht 175.3 cm; Wt 81.4 kg
[2017-09-27] MEDS ORDERED: MULTAQ400 MG PO (18:47)
[2017-09-27 19:25] LABS: BASOPHILS 0.4 % (0-2); EOSINOPHILS 3.1 % (0-7); HEMATOCRIT 38.2 % (36.0-48.0); HEMOGLOBIN 12.6 g/dL (12-16); IMMATURE GRANULOCYTES 0.2 % (0-5); LYMPHOCYTES 29.9 % (15-50); MCH 30.5 pg (26.0-34.0); MCV 92.5 fL (80.0-100.0); MEAN PLATELET VOLUME 10.3 fL (7.4-10.4); MONOCYTES 12.6 % (2-11); NEUTROPHILS 53.8 % (40-80); PLATELET COUNT 191 10x3/uL (130-400); RBC 4.13 10x6/uL (4.00-5.40); RDW 13.9 % (11.5-14.5); WBC 5.6 10x3/uL (4.8-10.8)
[2017-09-27 19:41] LABS: ALBUMIN 3.5 g/dL (3.4-5.0); ALKALINE PHOSPHATASE 87 U/L (46-116); ALT (SGPT) 24 U/L (10-68); BILIRUBIN - TOTAL 0.14 mg/dL (0.2-1.3); CALC OSMOLALITY 289 mosm/kg (275-300); CALCIUM 8.5 mg/dL (8.5-10.1); CARBON DIOXIDE 28.2 mmol/L (21.0-32.0); CHLORIDE - SERUM 107 mmol/L (98-107); CREATININE - SERUM 1.1 mg/dL (0.6-1.3); SODIUM 143 mmol/L (136-145); UREA NITROGEN 18 mg/dL (7-18); eGFR NON AFRICAN AMERICAN 50 mL/min (90-120)
[2017-09-27 19:48] LABS: GLUCOSE 157 mg/dL (74-106)
[2017-09-27 19:53] LABS: CKMB 0.4 U/L (0.0-3.6); CREATINE KINASE 27 UL (21-215); TROPONIN-I < 0.017 ng/mL (0.000-0.060)
[2017-09-27 20:29] VITALS: BP 192/84
== END 2017-09-27 20:45 | disposition home or self-care (01) ==
LOC: D.ER 18:33
PROVIDERS: Family Medicine
DX: I48.92 Unspecified atrial flutter (principal); I10 Essential (primary) hypertension; J44.9 Chronic obstructive pulmonary disease, unspecified; K21.9 Gastro-esophageal reflux disease without esophagitis

== ENCOUNTER 2017-10-11 15:20 | Emergency (ER) | payer MEDICARE ==
[~2017-10-11] VITALS: Ht 175.3 cm; Wt 81.4 kg
[~2017-10-11 15:20] MED LIST changes: +MULTAQ400 MG PO
[2017-10-11 15:31] VITALS: Ht 175.3 cm; Wt 81.4 kg
[2017-10-11 16:57] LABS: BASOPHILS 0.6 % (0-2); HEMATOCRIT 36.7 % (36.0-48.0); LYMPHOCYTES 28.8 % (15-50); MCH 30.4 pg (26.0-34.0); MCHC 32.7 g/dL (31.0-37.0); MCV 92.9 fL (80.0-100.0); MEAN PLATELET VOLUME 10.8 fL (7.4-10.4); MONOCYTES 12.7 % (2-11); NEUTROPHILS 53.9 % (40-80); PLATELET COUNT 204 10x3/uL (130-400); RBC 3.95 10x6/uL (4.00-5.40); RDW 13.9 % (11.5-14.5); WBC 5.2 10x3/uL (4.8-10.8)
[2017-10-11 17:23] LABS: ALBUMIN 3.5 g/dL (3.4-5.0); ALKALINE PHOSPHATASE 88 U/L (46-116); ALT (SGPT) 23 U/L (10-68); BILIRUBIN - TOTAL 0.13 mg/dL (0.2-1.3); CALC OSMOLALITY 286 mosm/kg (275-300); CALCIUM 8.4 mg/dL (8.5-10.1); CARBON DIOXIDE 30.1 mmol/L (21.0-32.0); CHLORIDE - SERUM 108 mmol/L (98-107); CREATININE - SERUM 0.8 mg/dL (0.6-1.3); GLUCOSE 104 mg/dL (74-106); POTASSIUM - SERUM 4.5 mmol/L (3.5-5.1); SODIUM 143 mmol/L (136-145); UREA NITROGEN 17 mg/dL (7-18); eGFR NON AFRICAN AMERICAN 72 mL/min (90-120)
[2017-10-11 17:27] LABS: CREATINE KINASE 36 UL (21-215)
[2017-10-11 17:32] LABS: TROPONIN-I < 0.017 ng/mL (0.000-0.060)
[2017-10-11] MEDS ORDERED: VOLTAREN75 MG PO (19:52)
[2017-10-11] MEDS ORDERED: ROBAXIN500 MG PO (19:52)
[2017-10-11 20:17] VITALS: BP 162/84
== END 2017-10-11 20:18 | disposition home or self-care (01) ==
LOC: D.ER 15:20
PROVIDERS: Family Medicine
DX: M25.512 Pain in left shoulder (principal); S46.002A Unspecified injury of muscle(s) and tendon(s) of the rotator cuff of left shoulder, initial encounter; X58.XXXA Exposure to other specified factors, initial encounter; Y93.89 Activity, other specified; Y92.019 Unspecified place in single-family (private) house as the place of occurrence of the external cause; I10 Essential (primary) hypertension

== ENCOUNTER 2018-04-15 22:15 | Emergency (ER) | payer MEDICARE ==
[~2018-04-15] VITALS: Ht 175.3 cm; Wt 79.1 kg
[~2018-04-15 22:15] MED LIST changes: +ROBAXIN500 MG PO; +VOLTAREN75 MG PO
[2018-04-15 22:19] VITALS: Ht 175.3 cm; Wt 79.1 kg
[2018-04-15] MEDS ORDERED: BETAPACE 80 MG80 MG PO (22:21)
[2018-04-15 23:26] LABS: HEMATOCRIT 39.6 % (36.0-48.0); HEMOGLOBIN 13.2 g/dL (12-16); LYMPHOCYTES 35.5 % (15-50); MCH 30.8 pg (26.0-34.0); MCHC 33.3 g/dL (31.0-37.0); MCV 92.3 fL (80.0-100.0); MEAN PLATELET VOLUME 10.9 fL (7.4-10.4); NEUTROPHILS 53.5 % (40-80); PLATELET COUNT 198 10x3/uL (130-400); RBC 4.29 10x6/uL (4.00-5.40); RDW 12.8 % (11.5-14.5); WBC 5.3 10x3/uL (4.8-10.8)
[2018-04-15 23:31] LABS: APTT 28.1 SECONDS (22.8-39.4); INR 1.01 (0.85-1.17); PROTIME 12.8 SECONDS (11.6-15.0)
[2018-04-15 23:36] LABS: ALBUMIN 3.4 g/dL (3.4-5.0); ALKALINE PHOSPHATASE 105 U/L (46-116); ALT (SGPT) 22 U/L (10-68); BILIRUBIN - TOTAL 0.16 mg/dL (0.2-1.3); CALC OSMOLALITY 286 mosm/kg (275-300); CALCIUM 8.5 mg/dL (8.5-10.1); CARBON DIOXIDE 28.7 mmol/L (21.0-32.0); CHLORIDE - SERUM 104 mmol/L (98-107); CREATININE - SERUM 0.9 mg/dL (0.6-1.3); GLUCOSE 149 mg/dL (74-106); PROTEIN - SERUM 7.2 g/dL (6.4-8.2); SODIUM 141 mmol/L (136-145); UREA NITROGEN 21 mg/dL (7-18); eGFR NON AFRICAN AMERICAN 63 mL/min (90-120)
[2018-04-15 23:46] LABS: CKMB 0.8 U/L (0.0-3.6); CREATINE KINASE 42 UL (21-215); MAGNESIUM - SERUM 1.7 mg/dL (1.8-2.4)
[2018-04-15 23:52] LABS: TROPONIN-I < 0.017 ng/mL (0.000-0.060)
[2018-04-16 02:56] VITALS: BP 122/64
== END 2018-04-16 02:57 | disposition home or self-care (01) ==
LOC: D.ER 22:15
PROVIDERS: Family Medicine
DX: I48.91 Unspecified atrial fibrillation (principal); J44.9 Chronic obstructive pulmonary disease, unspecified; R06.02 Shortness of breath; I44.0 Atrioventricular block, first degree

== ENCOUNTER 2018-05-18 21:16 | Observation (INO) | payer MEDICARE ==
[~2018-05-18] VITALS: Ht 175.3 cm; Wt 82.7 kg
[2018-05-18 22:00] VITALS: BP 101/65
[2018-05-18 22:15] VITALS: BP 97/71
[2018-05-18 22:25] LABS: BASOPHILS 0.3 % (0-2); EOSINOPHILS 2.2 % (0-7); HEMATOCRIT 37.5 % (36.0-48.0); HEMOGLOBIN 12.1 g/dL (12-16); IMMATURE GRANULOCYTES 0.2 % (0-5); MCH 29.8 pg (26.0-34.0); MCHC 32.3 g/dL (31.0-37.0); MCV 92.4 fL (80.0-100.0); MEAN PLATELET VOLUME 11.4 fL (7.4-10.4); MONOCYTES 13.7 % (2-11); NEUTROPHILS 50.6 % (40-80); PLATELET COUNT 193 10x3/uL (130-400); RBC 4.06 10x6/uL (4.00-5.40); RDW 13.5 % (11.5-14.5)
[2018-05-18 22:30] VITALS: BP 95/65
[2018-05-18 22:34] LABS: ALBUMIN 3.2 g/dL (3.4-5.0); ALKALINE PHOSPHATASE 100 U/L (46-116); ALT (SGPT) 22 U/L (10-68); BILIRUBIN - TOTAL 0.19 mg/dL (0.2-1.3); CALC OSMOLALITY 290 mosm/kg (275-300); CALCIUM 8.4 mg/dL (8.5-10.1); CHLORIDE - SERUM 106 mmol/L (98-107); CREATININE - SERUM 0.9 mg/dL (0.6-1.3); GLUCOSE 159 mg/dL (74-106); POTASSIUM - SERUM 3.6 mmol/L (3.5-5.1); PROTEIN - SERUM 6.7 g/dL (6.4-8.2); SODIUM 143 mmol/L (136-145); UREA NITROGEN 21 mg/dL (7-18); eGFR NON AFRICAN AMERICAN 63 mL/min (90-120)
--- NOTE | 2018-05-18 22:35 | NUR ---
PT CONVERTED TO NORMAL SINUS RHYTHM AT THIS TIME. EDP NOTIFIED. ALEX EDP GAVE VERBAL ORDER TO NOT ADMINISTER CARDIZEM BOLUS OR DRIP.
[2018-05-18 22:36] LABS: CREATINE KINASE 29 UL (21-215); MAGNESIUM - SERUM 1.7 mg/dL (1.8-2.4)
[2018-05-18 22:39] LABS: TROPONIN-I < 0.017 ng/mL (0.000-0.060)
[2018-05-18 22:40] VITALS: BP 100/64
[2018-05-18 22:50] VITALS: BP 97/54
[2018-05-18 23:55] VITALS: BP 101/48
--- NOTE | 2018-05-19 00:11 | NUR ---
RECIEVED REPORT FROM MADDIE IN ER AT 2305. ARRIVED TO FLOOR AT 2320 IN W/C WITH FAMILY AT HER SIDE. ALERT AND ORIENTED X4. UP AD VERONICA TO B/R. DTR TO STAY WITH HER TONIGHT. SOME EDEMA TO LOWER EXTREMITIES. LUNG SOUONDS CLEAR BILATERALLY. C/O SOB WITH EXERTION. O2@ 2 LITERS PER N/C. DENIES ANY NEEDS AT THIS TIME.
[2018-05-19 00:15] VITALS: BP 101/48; BMI 26.9
[2018-05-19 03:55] VITALS: BP 128/58
--- NOTE | 2018-05-19 07:30 | NUR ---
RECEIVED PT IN BED EYES CLOSED RESP UNLABORED NAD NOTED FAMILY AT BEDSIDE
[2018-05-19 08:03] VITALS: BP 129/80
[2018-05-19 11:34] VITALS: Ht 175.3 cm; Wt 82.7 kg
[2018-05-19] MEDS ORDERED: BETAPACE 80 MG80 MG PO (11:35)
[2018-05-19 13:25] VITALS: BP 169/85
--- NOTE | 2018-05-19 17:18 | NUR ---
REVIEWED DISCHARGE INSTRUCTIONS WITH PT AND DAUGHTER STATE UNDERSTANDING COPY GIVEN DCD SALINE LOCK TO RAC WITH IV CATHETER INTACT SITE FREE OF REDNESS OR EDEMA PT DISCHARGED HOME IN STABLE CONDITION WITH ALL PERSONAL BELONGINGS LEFT UNIT VIA W/C
--- NOTE | 2018-05-20 02:13 | CN ---
PATIENT NAME:MAKENNA VALENZUELA MEDICAL RECORD: [id number] : 34 LOCATION:D. D.2115 ADMIT DATE: 05/18/18 ACCOUNT: [id number] CONSULTING PHYSICIAN: BERTIN FERNANDEZ MD REFERRING PHYSICIAN: SLOAN LANDA MD DATE OF CONSULTATION: 05/19/2018 HISTORY: An 88-year-old female with history of atrial fibrillation, paroxysmal, on low-dose sotalol. This past week, she had 88th birthday. She had been around family in the last 72 hours and not resting well. She had atrial fibrillation, converted easily with IV diltiazem. She feels quite well at this point, has in fact converted to sinus rhythm. Enzymes are negative. PAST MEDICAL HISTORY: Includes; 1. History of paroxysmal atrial fibrillation. 2. Hypertension. 3. Osteoarthritis. 4. Obstructive pulmonary disease. MEDICATIONS: Include DuoNeb q.i.d., losartan 100 daily, sotalol 40 b.i.d., Neurontin 300 at bedtime, primidone 150 at bedtime, Singulair 10 at bedtime, and melatonin 3 mg at bedtime. ALLERGIES: ALDOMET, LIPITOR, HYDROCHLOROTHIAZIDE, AND ALDARA. SOCIAL HISTORY: Nonsmoker and nondrinker. She is able to take care of her ADLs. Excellent family support. REVIEW OF SYSTEMS: The patient reports easy bruising but reports no swollen glands. The patient reports no fever, no night sweats, no significant weight gain, no significant weight loss. No significant exercise tolerance. The patient reports no dry eyes, no irritation, no vision change. Patient reports no difficulty hearing and no ear pain. Patient reports no frequent nose bleeds or nose and sinus problems. Patient reports on arm pain on exertion. No shortness of breath while lying down. No history of heart murmur. Patient reports no cough, no wheezing or coughing up blood. Patient reports no abdominal pain, no vomiting. Normal appetite. No diarrhea and not vomiting blood. No nausea and no constipation. Patient reports no incontinence. No difficulty urinating. No hematuria. No increased frequency. Patient reports no muscle aches. No weakness, no arthralgias, no back pain. No swelling of the extremities. Patient reports no abnormal mole, no jaundice, no rashes. Reports no loss of consciousness. No weakness and no numbness. No seizures, dizziness, or headaches. The patient reports no depression, no sleep disturbance, feeling safe in a relationship and no alcohol abuse. Patient reports on fatigue. Reports no runny nose or sinus pressure. No itching, no hives, and no frequent sneezing. PHYSICAL EXAMINATION: GENERAL: Pleasant female, in no acute distress. VITAL SIGNS: Blood pressure 128/58. Pulse 60 and regular. HEENT: Normocephalic and atraumatic. NECK: No JVD or bruit. HEART: Regular. LUNGS: Good air excursion. ABDOMEN: Soft and nontender. CONSULT REPORT [id number] MAKENNA VALENZUELA EXTREMITIES: Pulse 2+. No edema. IMPRESSION: This is the 3rd breakthrough in the last 4 months. At this point in time, we will go ahead and increase her baseline sotalol to 80 b.i.d. Certainly, given her age, she may be approaching sick sinus syndrome. If bradyarrhythmias become a problem, wound certainly be a candidate for pacemaker placement. TRANSINT:[id number] Voice Confirmation ID: [id number] DOCUMENT ID: [id number] BERTIN FERNANDEZ MD at 0213 CC: [id number] DICTATION DATE: 05/19/18920 DAIRY AND FOOD LABORATORY ASSISTANT: 05/19/18 1229 DIS IN 05/19/18 [id number] [place] [address]
--- NOTE | 2018-05-20 08:22 | MORECARE ---
CASE MANAGEMENT DISCHARGE SUMMARY PATIENT: MAKENNA VALENZUELA UNIT: [id number] ADM DATE: 05/18/18 AGE: 88 : 32 SEX: F ROOM/BED: D.4550 AUTHOR: ANNELISE HAWLEY PHYSICIAN: REFERRING PHYSICIAN: SLOAN LANDA MD DATE OF SERVICE: 05/20/18 Discharge Plan Patient Name: MAKENNA VALENZUELA Facility: [facility]:[place] : 1930 Planned Disposition: Home Anticipated Discharge Date: 05/19/18 Discharge Date: 05/19/2018 Expected LOS: 1 Initial Reviewer: [email or web address] Initial Review Date: 05/20/2018 Generated: 05/20/18 9:22 am Patient Name: MAKENNA VALENZUELA Page [id number] at 0822 All edits/amendments must be made on the electronic document DICTATION DATE: 05/20/18821 STRAW HAT BRIM CUTTER OPERATOR: NEVA 05/20/18821 RPT#: [id number] DC DATE:05/19/18 STATUS: DIS IN [facility] [address] [facility] [place] [address] END OF REPORT
--- NOTE | 2018-05-20 11:56 | EC ---
PATIENT:MAKENNA VALENZUELA DATE OF SERVICE: 05/18/18 SEX: F MEDICAL RECORD: [id number] DATE OF : 34 LOCATION:D.M2 D.211 AGE OF PATIENT: 88 ADMISSION DATE: 05/18/18 REFERRING PHYSICIAN: INTERPRETING PHYSICIAN: BERTIN FERNANDEZ MD ECHOCARDIOGRAM REPORT ECHO CHARGES 4 ECHO COMPLETE Date: 05/19/18 CLINICAL DIAGNOSIS: AFIB ECHOCARDIOGRAPHIC MEASUREMENTS (adult normal given) AC root (d.<3.7cm) 1.9 cm LV Septum d (<1.2 cm> 1.0 cm Valve Excursion 0.8 cm LV Septum (systole) 1.0 cm Left Atria (s.<4.0cm> 3.4 cm LVPW d(<1.2cm) 1.0 cm RV (d.<2.3cm) 2.6 cm LVPW (sytole) 1.6 cm LV diastole(<5.6CM) 4.2 cm MV E-F(>70mm/sec) cm LV systole 2.1 cm LVOT Diameter 1.4 cm MV exc.(>10mm) cm Est.ejection fraction (50-75%) % DOPPLER: LVIT cm/sec A 64 cm/sec E 104 cm/sec LA cm/sec RVSP 40.1 mmHg LVOT 95 cm/sec AOP1/2T m/s Asc. Ao 154 cm/sec RVOT 57 cm/sec RA cm/sec PA 72 cm/sec AV Gradient Peak 9.5 mmHg AV Mean 5.6 mmHg AV Area 1.1 cm MV Gradient Peak 4.0 mmHg MV Mean 1.4 mmHg MV Area cm COMMENTS: Suture Polisher: Jason [facility] Mixing Picker Tender: [address] Dr[address] TAPE# PACS Pericardial Effusion N DATE OF SERVICE: Adequate 2D, Color Flow, Spectral Doppler, and M-Mode No LVH. LV internal dimension is normal. Wall motion is normal. EF is greater than or equal to 55%. Aortic valve is tricuspid. No evidence of stenosis by Doppler interrogation. Left atrium is normal at 3.4 cm. Mitral valve shows no prolapse. Trace MR. Right-sided chamber is grossly normal. Trace TR. TRANSINT:[id number] Voice Confirmation ID: [id number] DOCUMENT ID: [id number] ECHOCARDIOGRAM REPORT [id number] MAKENNA VALENZUELA BERTIN FERNANDEZ MD at 1156 CC: [id number] DICTATION DATE: 05/20/18 0159 CARROTER: 05/20/18 0546 DIS IN 05/19/18 [id number] [place] [address]
== END 2018-05-19 17:28 | disposition home or self-care (01) ==
LOC: D.ER 21:16 → D.M2 22:11 → OBSVTIME 22:11 → D.M2 05-19 17:28
PROVIDERS: Emergency Medicine; ADMIT Family Medicine; ATTEND Family Medicine
DX: I48.91 Unspecified atrial fibrillation (principal); I48.92 Unspecified atrial flutter; I10 Essential (primary) hypertension; J44.9 Chronic obstructive pulmonary disease, unspecified

== ENCOUNTER 2018-06-05 22:52 | Observation (INO) | payer MEDICARE ==
[~2018-06-05] VITALS: Ht 175.3 cm; Wt 83.2 kg
[2018-06-05 23:15] LABS: HEMOGLOBIN 12.9 g/dL (12-16); LYMPHOCYTES 31.6 % (15-50); MCH 30.9 pg (26.0-34.0); MCHC 33.9 g/dL (31.0-37.0); MCV 90.9 fL (80.0-100.0); MEAN PLATELET VOLUME 10.7 fL (7.4-10.4); NEUTROPHILS 58.6 % (40-80); PLATELET COUNT 178 10x3/uL (130-400); RBC 4.18 10x6/uL (4.00-5.40); RDW 12.8 % (11.5-14.5); WBC 6.3 10x3/uL (4.8-10.8)
[2018-06-05 23:22] LABS: APTT 31.7 SECONDS (22.8-39.4); INR 0.99 (0.85-1.17); PROTIME 12.6 SECONDS (11.6-15.0)
[2018-06-05 23:30] LABS: ALBUMIN 3.4 g/dL (3.4-5.0); ALKALINE PHOSPHATASE 110 U/L (46-116); ALT (SGPT) 27 U/L (10-68); BILIRUBIN - TOTAL 0.19 mg/dL (0.2-1.3); CALC OSMOLALITY 286 mosm/kg (275-300); CALCIUM 8.6 mg/dL (8.5-10.1); CARBON DIOXIDE 27.1 mmol/L (21.0-32.0); CHLORIDE - SERUM 103 mmol/L (98-107); CREATININE - SERUM 0.9 mg/dL (0.6-1.3); GLUCOSE 163 mg/dL (74-106); POTASSIUM - SERUM 3.8 mmol/L (3.5-5.1); PROTEIN - SERUM 7.3 g/dL (6.4-8.2); SODIUM 141 mmol/L (136-145); UREA NITROGEN 18 mg/dL (7-18); eGFR NON AFRICAN AMERICAN 63 mL/min (90-120)
[2018-06-05 23:40] LABS: CKMB 0.4 U/L (0.0-3.6); CREATINE KINASE 28 UL (21-215); MAGNESIUM - SERUM 1.7 mg/dL (1.8-2.4); TROPONIN-I < 0.017 ng/mL (0.000-0.060)
[2018-06-05 23:41] VITALS: BP 121/70
--- NOTE | 2018-06-06 00:57 | NUR ---
REPORT RECEIVED. FROM J[place] DE LUNA RN. PT ANSWERS QUESTIONS APPROPRIATELY, STATES SHE TAKES 80 MG OF SOTALOL BID AT HOME. DENIES FURTHER HISTORY OF CARDIAC PROCEDURES. DAUGHTER AT BEDSIDE. 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 CALL LIGHT IN REACH. WILL CTM.
[2018-06-06] MEDS ORDERED: CALCIUM 600 +1 EAC3 PO (01:09)
[2018-06-06] MEDS ORDERED: VITAMIN D10000 UNI1 PO (01:10)
--- NOTE | 2018-06-06 01:45 | NUR ---
CARDIZEM INFUSION STOPPED PT BEGAN TO RUN SINUS ANU IN LOW 50'S. WILL CTM.
--- NOTE | 2018-06-06 03:56 | NUR ---
PT LYING IN BED WITH EYES CLOSED, RR EVEN AND UNLABORED. BED IN LOW POSITION. NO S/S OF DISTRESS NOTED. 56 SINUS ANU ON TELEMETRY. CALL LIGHT IN REACH. WILL CTM.
--- NOTE | 2018-06-06 04:40 | NUR ---
ADMINISTERED ORDERED ANALGESIC FOR COMPLAINTS OF PAIN IN CHEST, PT STATES PAIN OF A 7 ON A SCALE OF 0-10. WILL CTM.
[2018-06-06 05:00] VITALS: BP 147/73
--- NOTE | 2018-06-06 07:30 | NUR ---
RECEIVED PT IN BED AAOX4 RESP UNLABORED SKIN W/D COLOR WNL DENIES ANY NEEDS OR DISCOMFORT AT THIS TIME
[2018-06-06 07:36] VITALS: Ht 175.3 cm; Wt 83.2 kg
[2018-06-06 10:02] VITALS: BP 104/83
[2018-06-06 15:34] VITALS: BP 140/78
[2018-06-06] MEDS ORDERED: CARDIZEM30 MG PO (15:59)
--- NOTE | 2018-06-06 16:44 | NUR ---
REVIEWED DISCHARGE INSTRUCTIONS WITH PT STATES UNDERSTANDING COPY GIVEN DCD SALINE LOCK TO RAC WITH IV CATHETER INTACT SITE FREE OF REDNESS OR EDEMA PT DISCHARGED HOME IN STABLE CONDITION WITH ALL PERSONAL BELONGINGS VIA W/C
== END 2018-06-06 16:44 | disposition home or self-care (01) ==
LOC: D.ER 22:52 → D.M2 06-06 00:04 → OBSVTIME 06-06 00:04 → D.M3 06-06 07:30 → D.M2 06-06 07:33
PROVIDERS: Family Medicine; ADMIT Family Medicine; ATTEND Family Medicine
DX: I48.0 Paroxysmal atrial fibrillation (principal); I10 Essential (primary) hypertension; K21.9 Gastro-esophageal reflux disease without esophagitis

== ENCOUNTER 2018-07-24 08:09 | Inpatient (IN) | payer MEDICARE ==
[2018-07-24] VITALS (7 sets, daily range): BP systolic 108–180; BP diastolic 51–93; BMI 21.0
--- NOTE | ~2018-07-24 | HEMODYNAMI ---
PATIENT:MAKENNA VALENZUELA MEDICAL RECORD: [id number] : 34 LOCATION:[facility] D.2129 ADMISSION DATE: 07/25/18 Generatedon:07/26/201813:39 Patient name: MAKENNA VALENZUELA Patient #: [id number] SSN: D OB: 1930 Date of study: 07/26/2018 Page: Of Hemodynamic Procedure Report Patient Data Patient Demographics Procedure consent was obtained First Name: MAKENNA Gender: Female Last Name: BIANCA : 1930 Patient #: [id number] Age: 88 year(s) Race: Unknown Additional ID: [id number] Contact details Address: [address] [place] [address] State: [place] City: [facility] Zip code: [address] Past Medical History Allergies Allergen Reaction Date Comments Reported Other allergy 07/26/2018 Sulfamethoxazole, trimethoprim, atorvastatin calcium, hydrochlorothiazide, imiquimod, methyldopa, methyldopate HCL. Admission Admission Data Admission Date: 07/25/2018 Admission Time: 15:04 Admit Source: Emergency department Room #: D.2129 Lab Results Lab Result Date: 07/26/2018 Lab Result Time: 4:49 Biochemistry Name Units Result Min Max BUN mg/dl 37 --(----)-* 7 18 Creatinine mg/dl 1.4 --(----)*- 0.6 1.3 CBC Name Units Result Min Max Hematocrit % 34.3 *-(----)-- 42 54 Hemoglobin g/dl 11.4 *-(----)-- 13.5 17.5 Procedure Procedure Types Cath Procedure Diagnostic Procedure Cardioversion External Procedure Description Procedure Date Procedure Date: 07/26/2018 Procedure Start Time: 13:34 Procedure End Time: 13:38 Procedure Staff Name Function Clint Street MD Performing Physician Dominik Antonio RT Monitor Evie Blair RT Gas Plant Specialist Naomi Prajapati RN Nurse Procedure Data Procedure Complications No complications Procedure Medications Medication Administration Route Dosage Versed I.V. 2 mg Fentanyl I.V. 50 mcg Versed I.V. 2 mg Fentanyl I.V. 50 mcg 0.9% NaCl I.V. 100 ml/hr Oxygen NC 2 l/min Hemodynamics Rest HGB: 11.4 (g/dl) Heart Rate: 71 (bpm) Snapshots Pre Cath Intra NCS Post Cath Vital Signs Time Heart Resp SPO2 etCO2 NIBP (mmHg) Rhythm Pain Sedation Rate (ipm) (%) (mmHg) Status Level (bpm) 13:22:57 87 17 97 31.4 Measuring A-Fib 0 (11) 10(A) , No pain 13:25:25 84 17 98 32.2 150/134(146) A-Fib 0 (11) 10(A) , No pain 13:29:33 71 16 96 5.2 108/67(87) A-Fib 0 (11) 10(A) , No pain 13:33:44 76 14 96 39.7 105/62(79) A-Fib 0 (11) 9(A) , No pain 13:38:47 51 16 98 36.7 130/64(111) SB 0 (11) 10(A) , No pain Medications Time Medication Route Dose Verified Delivered Reason Notes Effectiven ess by by 13:04:35 Oxygen NC 2 Clint Naomi used for l/min Jad Prajapati clinical services professional 13:24:26 0.9% NaCl I.V. 100 Clint Naomi used for ml/hr Jad Prajapati clinical services professional 13:25:21 Versed I.V. 2 mg Clint Naomi for Jad Prajapati sedation RN 13:25:33 Fentanyl I.V. 50 Clint Naomi for mcg Jad Prajapati sedation RN 13:30:41 Versed I.V. 2 mg Clint Naomi for Jad Prajapati sedation RN 13:30:45 Fentanyl I.V. 50 Clint Naomi for mcg Jad Prajapati sedation student assistant Log Time Note 12:54:05 Informed consent obtained and on chart 12:54:33 Admit Source: Emergency department 12:55:18 Diagnostic Cath status Elective 12:55:59 Evie Blair RT(R) sent for patient. Start room use. 12:56:00 Time tracking: Regular hours (M-F 7:00 - 5:00) 12:56:18 Plan of Care:Hemodynamics will remain stable., Cardiac rhythm will remain stable., Comfort level will be maintained., Respiratory function will remain adequate., Patient/ family verbilizes understanding of procedure., Procedure tolerated without complication., Recovers from procedure without complications.. 12:57:31 H&P Date Dictated: 07/24/2018 Within 30 days and on chart.. 13:04:35 Oxygen 2 l/min NC was administered by Naomi Prajapati RN; used for procedure; 13:13:06 Patient received from Med II to CCL 1 Alert and oriented. Tansferred to table in Supine position. 13:13:08 Warm blankets applied, and meng hugger turned on for patient comfort. 13:13:08 Correct patient and procedure confirmed by team. 13:13:11 Pre-procedure instructions explained to patient. 13:13:11 Pre-op teaching completed and patient verbalized understanding. 13:13:12 Family in patients room. 13:13:20 Patient NPO since Breakfast. 13:14:50 Patient allergic to Other allergySulfamethoxazole, trimethoprim, atorvastatin calcium, hydrochlorothiazide, imiquimod, methyldopa, methyldopate HCL. 13:14:52 Is the patient allergic to Iodine/contrast media? No. 13:15:18 Is patient on blood thinner?No 13:15:53 Airway obstruction? Yes COPD 13:15:57 Dentures? Yes OUT 13:16:01 Patient diabetic? No. 13:16:04 Previous problem with sedation/anesthesia? No ? 13:16:22 Snore? Yes 13:16:23 Sleep apnea? No 13:16:23 Deviated septum? No 13:16:24 Opens mouth fully? Yes 13:16:25 Sticks out tongue? Yes 13:16:43 Patient pain scale 0/10 ?. 13:16:48 IV patent on arrival in left forearm with 0.9% NaCl at [facility]. 13:17:22 Lab Result : BUN 37 mg/dl 13:17:22 Lab Result : Hemoglobin 11.4 g/dl 13:17:22 Lab Result : Creatinine 1.4 mg/dl 13:17:22 Lab Result : Hematocrit 34.3 % 13:18:23 Lab results completed and on chart. 13:18:45 Alarms reviewed by R. N. 13:18:50 ECG and BP/O2 sat monitors applied to patient. 13:21:08 Vital chart was started 13::54 Baseline sample Acquired. 13:23:44 Rhythm: atrial fibrillation 13::46 Full Disclosure recording started 13:24:26 0.9% NaCl 100 ml/hr I.V. was administered by Naomi Prajapati RN; used for procedure; 13:24:43 Baseline sample Acquired. 13::53 Physician arrived 13::53 --------ALL STOP TIME OUT------ 13::54 Final Timeout: patient, procedure, and site verified with staff and physician. All members of the team are in agreement. 13:25:16 Fire Safety Assessment: C--Open oxygen or nitrous oxide is being used. 13:25:20 Physical assessment completed. ASA score P 2 - A patient with mild systemic disease as per Clint Street MD. 13:25:21 Versed 2 mg I.V. was administered by Naomi Prajapati RN; for sedation; 13:25:23 Sedation plan: IV Moderate Sedation Medication:Versed, Fentanyl 13:25:33 Fentanyl 50 mcg I.V. was administered by Naomi Prajapati RN; for sedation; 13:27:02 Quick Combo opened to sterile field. 13:30:41 Versed 2 mg I.V. was administered by Naomi Prajapati RN; for sedation; 13:30:45 Fentanyl 50 mcg I.V. was administered by Naomi Prajapati RN; for sedation; 13:34:15 Baseline sample Acquired. 13:34:29 Procedure started. 13:34:30 ------Cardioversion------ 13:34:31 Quick combo pads placed on patients chest and back. 13:34:54 Defibrillator synced and charged to 275 Joules. 13:35:03 Shock delivered. 13:35:28 Patient cardioverted to sinus bradycardia. 13:35:37 Procedure ended.(Physican Out) 13:36:18 Post-procedure physical assessment completed. ASA score P 2 - A patient with mild systemic disease as per Clint Street MD. 13:36:22 Post procedure rhythm: sinus bradycardia 13:36:29 Post procedure instruction explained to patient.Patient verbalizes understanding. 13:36:29 Patient needs reinforcement of post procedure teaching. 13:38:01 Procedure and supply charges have been captured, reviewed, submitted and are correct. 13:38:04 Procedure Complication : No complications 13:38:06 Vital chart was stopped 13:38:06 See physician's report for complete and final results. 13:38:08 Report given to [facility] II. 13:38:10 Patient transfered to [facility] with Bed. 13:38:11 Procedure ended. 13:38:11 Full Disclosure recording stopped 13:38:14 End room use (Document Last) Device Usage Item Manufacture Quantity Catalog Hospital Part Current Minimal Lot# / Name Number Charge Number Stock Stock Esperanza sin# Code Quartzy 1 [id number] Combo Signature Audit [place] Stage Time Signature Unsigned Intra-Procedure 07/26/2018 Evie Blair 1:39:47 PM RT(R) Signatures Monitor : Dominik Antonio RT Signature : Date : Time : [id number] [place] [address]
[~2018-07-24 08:09] MED LIST changes: +CALCIUM 600 +1 EAC3 PO; +CARDIZEM30 MG PO; +VITAMIN D10000 UNI1 PO
[2018-07-24 08:39] LABS: BASOPHILS 0.1 % (0-2); EOSINOPHILS 0.3 % (0-7); HEMATOCRIT 39.5 % (36.0-48.0); HEMOGLOBIN 13.3 g/dL (12-16); IMMATURE GRANULOCYTES 0.3 % (0-5); LYMPHOCYTES 4.3 % (15-50); MCH 30.4 pg (26.0-34.0); MCHC 33.7 g/dL (31.0-37.0); MCV 90.4 fL (80.0-100.0); MEAN PLATELET VOLUME 11.2 fL (7.4-10.4); MONOCYTES 5.8 % (2-11); NEUTROPHILS 89.2 % (40-80); PLATELET COUNT 174 10x3/uL (130-400); RBC 4.37 10x6/uL (4.00-5.40); RDW 13.6 % (11.5-14.5); WBC 14.9 10x3/uL (4.8-10.8)
[2018-07-24 08:51] LABS: ANION GAP 14.4 mmol/L (8-16); BILIRUBIN - TOTAL 0.42 mg/dL (0.2-1.3); CALCIUM 9.3 mg/dL (8.5-10.1); CARBON DIOXIDE 25.5 mmol/L (21.0-32.0); CREATININE - SERUM 0.8 mg/dL (0.6-1.3); POTASSIUM - SERUM 3.9 mmol/L (3.5-5.1); PROTEIN - SERUM 7.6 g/dL (6.4-8.2)
[2018-07-24 09:12] LABS: APPEARANCE CLEAR (CLEAR); BACTERIA FEW /hpf (NONE SEEN); BILIRUBIN NEGATIVE (NEGATIVE); COLOR YELLOW (YELLOW); GLUCOSE NEGATIVE (NEGATIVE); KETONE NEGATIVE (NEGATIVE); NITRITE NEGATIVE (NEGATIVE); PROTEIN NEGATIVE (NEGATIVE); RED CELLS - URINE 0-5 /hpf (0-5); SPECIFIC GRAVITY 1.015 (1.005-1.020); UROBILINOGEN NORMAL (NORMAL); WHITE CELLS - URINE 0-5 /hpf (0-5)
[2018-07-24 09:13] LABS: EPITHELIAL CELLS OCC /hpf (0-5); MUCUS <1+ /lpf (NONE SEEN)
[2018-07-24] MEDS ORDERED: MACROBID100 MG PO (09:35)
--- NOTE | 2018-07-24 09:45 | NUR ---
RESTING IN BED WITH EYES CLOSED, AROUSES EASILY. REPORTS NAUSEA RESOLVED. VSS. FAMILY REMAINS AT BS
--- NOTE | 2018-07-24 12:01 | NUR ---
REPORT CALLED TO YAMIL DAVIS BY SBAR FORMAT
--- NOTE | 2018-07-24 12:30 | NUR ---
TXD TO ROOM #2129 VIA STRETCHER, CONDITION STABLE. SL X3 INTACT UPON TX. FAMILY REMAINS WITH PT
--- NOTE | 2018-07-24 12:55 | NUR ---
RECEIVED PT FROM ER VIA WHEELCHAIR WITH FAMILY. PT IS AAO AND UP WITH ASSIST. VSS AND WNL. PT CURRENTLY LYING SEMI FOWLERS. CALL LIGHT W/I REACH. FAMILY AT BEDSIDE. PT INSTRUCTED ON FALL PRECAUTIONS AND HOW TO USE CALL LIGHT W/I REACH. RR EVEN AND UNLABORED ON RA. L.AC AND R.WRIST PIV ARE SALINE LOCKED. NO S/S OF DISTRESS NOTED. PT DENIES ANY NEEDS. WILL CTM.
--- NOTE | 2018-07-24 13:58 | NUR ---
ASSESSMENT COMPLETE VERY PLEASANT 88 Y/O W/F AAOX4 RESP UNLABORED DENIES [place] NAUSEA OR PAIN AT THIS TIME SALINE LOCKS INTACT TO LAC RT WRIST WITH OCCLUSIVE DRSG NO REDNESS OR EDEMA NOTED TO SITES DENIES ANY NEEDS AT THIS TIME WILL CONTINUE TO MONITOR
--- NOTE | 2018-07-24 18:03 | NUR ---
RECEIVED TELEPHONE ORDERS PER TO PLACE PT ON ELECTROLYTE PROTOCOL AND RESTART ALL NIGHTTIME MEDICATIONS WELL THE ZOFRAN AND NORCO. WILL PLACE ORDERS AND CONTINUE TO MONITOR.
--- NOTE | 2018-07-24 19:20 | NUR ---
PT RESTING IN BED. FAMILY AT BEDSIDE. PT IS AAO, LEFT AC AND RIGHT WRIST 22G S/L PT DENIES ANY NEEDS. NO S/S OF DISTRESS. BEDLOW AND CALL LIGHT IN REACH. NAME AND DATE PLACED ON BOARD. WILL CPOC
--- NOTE | 2018-07-24 21:42 | NUR ---
NIGHT MEDICATIONS GIVEN. PT VERBALIZED UNDERSTANDING OF ALL MEDICATIONS. REFUSES CARDIZEM AT THIS TIME. PT/FAMILY STATES ONLY TAKES WHEN IN AFIB. PT STATES SHE FEELS LIKE HER HEART IS BEATING FAST. NURSE LISTENED. CHANGE FROM PREVIOUS ASSESSMENT. STILL REGULAR RHYTHM, INCREASED RATE. PLACED A ORDER FOR A HEART MONITOR. PT STATES HISTORY OF A FIB WHEN GETS SICK OR STRESSED.
[2018-07-24] MEDS ORDERED: CARDIZEM30 MG PO (21:45)
--- NOTE | 2018-07-24 23:01 | NUR ---
CARDIZEM GIVEN. PT IS UNCONTROLLED A FIB 130
--- NOTE | 2018-07-24 23:54 | NUR ---
UNCONTROLLED A FIB 122
[2018-07-25] VITALS: BP 119/81
--- NOTE | 2018-07-25 03:09 | NUR ---
PT ASLEEP, RESP EVEN AND UNLABORED. CPAP ON, FAMILY AT BEDSIDE. BEDLOW AND CALL LIGHT IN REACH. WILL CPOC
[2018-07-25 04:00] VITALS: BP 81/60
[2018-07-25 05:26] LABS: BASOPHILS 0.1 % (0-2); EOSINOPHILS 2.3 % (0-7); HEMATOCRIT 36.8 % (36.0-48.0); HEMOGLOBIN 12.1 g/dL (12-16); IMMATURE GRANULOCYTES 0.2 % (0-5); LYMPHOCYTES 9.8 % (15-50); MCH 29.7 pg (26.0-34.0); MCHC 32.9 g/dL (31.0-37.0); MCV 90.4 fL (80.0-100.0); MEAN PLATELET VOLUME 11.5 fL (7.4-10.4); MONOCYTES 9.6 % (2-11); PLATELET COUNT 176 10x3/uL (130-400); RBC 4.07 10x6/uL (4.00-5.40); RDW 13.9 % (11.5-14.5)
[2018-07-25 05:28] LABS: WBC 10.4 10x3/uL (4.8-10.8)
[2018-07-25 05:36] LABS: ANION GAP 12.6 mmol/L (8-16); CALCIUM 8.5 mg/dL (8.5-10.1); CARBON DIOXIDE 26.8 mmol/L (21.0-32.0); POTASSIUM - SERUM 3.4 mmol/L (3.5-5.1)
[2018-07-25 07:34] VITALS: BP 111/64
--- NOTE | 2018-07-25 08:59 | NUR ---
Pt has no skin breakdown, but is at risk due to age and decreased mobility. Recommended precautions: Turn/reposition q 2 hours, float heels, protect bony prominences and use calmoseptine cream on perineal area if redness occurs due to incontinence.
[2018-07-25 11:52] VITALS: BP 102/78
[2018-07-25 12:17] VITALS: BMI 27.7
--- NOTE | 2018-07-25 12:49 | NUR ---
PT RESTING COMFORTABLY IN BED WITH EYES CLOSED RR EVEN AND UNLABORED. PT RUNNING 75 A-FIBB ON MONITOR. NO S/S OF DISTRESS. VITALS STABLE AT THIS TIME. BED LOW CALL LIGHT WITHIN REACH WILL CONTINUE TO MONITOR.
--- NOTE | 2018-07-25 15:18 | NUR ---
I have reviewed this patient and I concur with the Shift Assessment completed by the Licensed Practical Nurse today this shift.
[2018-07-25 16:22] VITALS: BP 98/52
--- NOTE | 2018-07-25 19:15 | NUR ---
PT IN BED. DAUGHTER AT BEDSIDE. PT DENIES NEEDS AT THIS TIME.
[2018-07-25 20:00] VITALS: BP 112/48
[2018-07-26] VITALS: BP 94/42
[2018-07-26 04:00] VITALS: BP 91/52
[2018-07-26 05:39] LABS: BASOPHILS 0.3 % (0-2); EOSINOPHILS 4.8 % (0-7); HEMATOCRIT 34.3 % (36.0-48.0); HEMOGLOBIN 11.4 g/dL (12-16); IMMATURE GRANULOCYTES 0.2 % (0-5); LYMPHOCYTES 23.9 % (15-50); MCH 30.1 pg (26.0-34.0); MCHC 33.2 g/dL (31.0-37.0); MCV 90.5 fL (80.0-100.0); MEAN PLATELET VOLUME 11.5 fL (7.4-10.4); MONOCYTES 14.1 % (2-11); NEUTROPHILS 56.7 % (40-80); PLATELET COUNT 157 10x3/uL (130-400); RBC 3.79 10x6/uL (4.00-5.40)
[2018-07-26 05:46] LABS: WBC 5.8 10x3/uL (4.8-10.8)
[2018-07-26 05:56] LABS: ANION GAP 13.3 mmol/L (8-16); CARBON DIOXIDE 24.5 mmol/L (21.0-32.0); POTASSIUM - SERUM 3.8 mmol/L (3.5-5.1)
[2018-07-26 06:04] LABS: CALCIUM 8.3 mg/dL (8.5-10.1)
[2018-07-26 06:06] LABS: CREATININE - SERUM 1.4 mg/dL (0.6-1.3)
--- NOTE | 2018-07-26 07:47 | NUR ---
REPORT RECEIVED. WILL CONTINUE WITH POC. PT CURRENTLY LYING ON RIGHT SIDE. CALL LIGHT W/I REACH. FAMILY AT BEDSIDE. RR EVEN AND UNLAOBRED ON RA. NS INFUSING @50ML/HR VIA L.AC PIV. NO S/S OF DISTRESS NOTED. PT DENIES ANY NEEDS. WILL CTM.
[2018-07-26 08:12] VITALS: BP 114/76
[2018-07-26 09:34] VITALS: BMI 27.7
--- NOTE | 2018-07-26 10:47 | NUR ---
PREVIOUS PIV TO THE RIGHT FOREARM INFILTRATED. REMOVED PIV WITH CATHETER TIP FULLY INTACT. STARTED NEW PIV TO THE RIGHT FOREARM 22GA X1 ATTEMPT. FLUSHED WITH 10CC NS TO CONFIRM PATENCY. ADMINISTERED LOVENOX AND DIGOXIN. CONSENTS SIGNED. WILL CTM.
[2018-07-26 12:12] VITALS: BP 98/54
--- NOTE | 2018-07-26 15:23 | NUR ---
I have reviewed this patient and I concur with the Shift Assessment completed by the Licensed Practical Nurse today this shift.
[2018-07-26 16:30] VITALS: BP 131/56
--- NOTE | 2018-07-26 19:17 | NUR ---
PT IN BED. DENIES NEEDS AT THIS TIME.
[2018-07-26 20:00] VITALS: BP 145/63
[2018-07-27] VITALS: BP 119/69
[2018-07-27 06:00] VITALS: BP 128/66
[2018-07-27 06:47] LABS: BASOPHILS 0.2 % (0-2); EOSINOPHILS 5.4 % (0-7); HEMATOCRIT 33.9 % (36.0-48.0); HEMOGLOBIN 10.9 g/dL (12-16); IMMATURE GRANULOCYTES 0.2 % (0-5); MCH 29.5 pg (26.0-34.0); MCHC 32.2 g/dL (31.0-37.0); MCV 91.9 fL (80.0-100.0); MEAN PLATELET VOLUME 11.4 fL (7.4-10.4); MONOCYTES 11.8 % (2-11); NEUTROPHILS 52.4 % (40-80); PLATELET COUNT 156 10x3/uL (130-400); RBC 3.69 10x6/uL (4.00-5.40)
[2018-07-27 07:04] LABS: WBC 4.2 10x3/uL (4.8-10.8)
--- NOTE | 2018-07-27 07:10 | NUR ---
REPORT RECEIVED FROM NEWS CAMERA PERSON AND PATIENT CARE ASSUMED. PATIENT LAYING IN BED ON BACK AWAKE , ALERT AND ORIENTED X 4. DTR AT BS. PATIENT IS STABLE AND VSS. PATIENT DENIES ANY NEEDS OR PAIN. WILL CONTINUE WITH PLAN OF CARE. SR UP X 2 BED LOW POSITION AND CALL LIGHT IN REACH.
[2018-07-27 07:19] LABS: CALCIUM 8.6 mg/dL (8.5-10.1); CARBON DIOXIDE 25.6 mmol/L (21.0-32.0); CHLORIDE - SERUM 109 mmol/L (98-107); GLUCOSE 105 mg/dL (74-106); SODIUM 142 mmol/L (136-145)
[2018-07-27 07:21] LABS: CALC OSMOLALITY 286 mosm/kg (275-300); CREATININE - SERUM 0.7 mg/dL (0.6-1.3); POTASSIUM - SERUM 4.4 mmol/L (3.5-5.1); UREA NITROGEN 24 mg/dL (7-18); eGFR NON AFRICAN AMERICAN 84 mL/min (90-120)
[2018-07-27 08:10] VITALS: BP 116/51
--- NOTE | 2018-07-27 11:20 | NUR ---
PATIENT WATCHING TV. ASSESSMENT COMPLETED. WILL CONTINUE TO MONITOR.
[2018-07-27] MEDS ORDERED: AMOXICILLIN875 MG PO (11:29)
[2018-07-27 11:55] VITALS: BP 120/59
--- NOTE | 2018-07-27 13:33 | NUR ---
PATIENT IS STABLE AND VSS. ORDERS RECEIVED FOR DC. WRITTEN AND VERBAL INSTRUCTIONS GIVEN. PATIENT AND DTR VERBALIZED UNDERSTANDING. WRITTEN INSTRUCTIONS SIGNED BY DAUGHTER. IV DC/D W/O DIFFICULTY. PATIENT TRANSPORTED TO FRONT DOOR VIA WC TO PRIVATE VEHICLE DRIVEN BY DTR.
--- NOTE | 2018-07-29 09:50 | MORECARE ---
CASE MANAGEMENT DISCHARGE SUMMARY PATIENT: MAKENNA VALENZUELA UNIT: [id number] ADM DATE: 07/25/18 AGE: 88 : 32 SEX: F ROOM/BED: D.8759 AUTHOR: ANNELISE HAWLEY PHYSICIAN: REFERRING PHYSICIAN: SLOAN LANDA MD DATE OF SERVICE: 07/29/18 Discharge Plan Patient Name: MAKENNA VALENZUELA Facility: [facility]:[place] : 1930 Planned Disposition: Home Anticipated Discharge Date: 07/27/18 Discharge Date: 07/27/2018 Expected LOS: 2 Initial Reviewer: [email or web address] Initial Review Date: 07/29/2018 Generated: 07/29/18 10:50 am Coverage Notice Reviewer: [email or web address] Malachi Adam Notice Issued Date-Time: 07/27/2018 12:30 Notice Type: IM Discharge Notice Notice Delivered To: Patient Relationship to Patient: Self Engineering Associate Name: Delivery Method: HAND - Hand Delivered Kala Days: Prior Verbal Notification: Recipient Understood Notice: Yes Recipient Signature: Yes Med Rec Note Co-signed by Attending: Coverage Notice Comment: Patient Name: MAKENNA VALENZUELA Page [phone] at 0950 All edits/amendments must be made on the electronic document DICTATION DATE: 07/29/18 0950 WOODS SUPERINTENDENT: NEVA 07/29/18 0950 RPT#: [id number] DC DATE:07/27/18 STATUS: DIS IN [facility] [address] [place] [address] END OF REPORT
--- NOTE | 2018-07-30 14:37 | OP ---
PATIENT NAME: MAKENNA VALENZUELA MEDICAL RECORD: [id number] :34 LOCATION:D.M2 D.2129 ADMISSION DATE:07/25/18 SURGEON: PAVEL RASHID MD DATE OF OPERATION: 07/26/2018 DATE OF SERVICE: 07/26/2018 PROCEDURE: DC cardioversion. TECHNIQUE: IV conscious sedation was performed with Versed, fentanyl continuous heart rate, O2 saturation, blood pressure monitoring all undertaken, all of which remains stable. She received 1 shock restoring sinus rhythm. OVERALL IMPRESSION: Successful DC cardioversion from atrial fibrillation to sinus rhythm. TRANSINT:[id number] Voice Confirmation ID: [id number] DOCUMENT ID: [id number] PAVEL RASHID MD at 1437 CC: [id number] DICTATION DATE: 07/26/18 1337 FLIGHT ATTENDANT/INFLIGHT SUPERVISOR: 07/26/18 1404 DIS IN 07/27/18 [id number] [place] [address]
== END 2018-07-27 13:37 | disposition home or self-care (01) | DRG 690 ==
LOC: D.ER 08:09 → OBSVTIME 11:34 → D.M2 11:34
PROVIDERS: Emergency Medicine; ADMIT Family Medicine; ATTEND Family Medicine
DX: N39.0 Urinary tract infection, site not specified (principal); J44.9 Chronic obstructive pulmonary disease, unspecified; I10 Essential (primary) hypertension; K21.9 Gastro-esophageal reflux disease without esophagitis; R11.2 Nausea with vomiting, unspecified; T36.8X5A Adverse effect of other systemic antibiotics, initial encounter; B96.20 Unspecified Escherichia coli [E. coli] as the cause of diseases classified elsewhere; I48.0 Paroxysmal atrial fibrillation

== ENCOUNTER 2019-04-23 20:56 | Inpatient (IN) | payer MEDICARE ==
[~2019-04-23] VITALS: Ht 175.3 cm; Wt 83.9 kg
[~2019-04-23 20:56] MED LIST changes: +AMOXICILLIN875 MG PO; +MACROBID100 MG PO
[2019-04-23 21:40] LABS: BILIRUBIN NEGATIVE (NEGATIVE); GLUCOSE NEGATIVE (NEGATIVE); KETONE NEGATIVE (NEGATIVE); NITRITE NEGATIVE (NEGATIVE); SPECIFIC GRAVITY 1.025 (1.005-1.020); UROBILINOGEN NORMAL (NORMAL)
[2019-04-23 22:04] LABS: BASOPHILS 0.2 % (0-2); EOSINOPHILS 1.8 % (0-7); HEMATOCRIT 39.7 % (36.0-48.0); HEMOGLOBIN 12.8 g/dL (12-16); IMMATURE GRANULOCYTES 0.3 % (0-5); LYMPHOCYTES 12.2 % (15-50); MCH 30.5 pg (26.0-34.0); MCHC 32.2 g/dL (31.0-37.0); MCV 94.5 fL (80.0-100.0); MEAN PLATELET VOLUME 10.9 fL (7.4-10.4); MONOCYTES 7.7 % (2-11); NEUTROPHILS 77.8 % (40-80); RDW 13.6 % (11.5-14.5); WBC 11.4 10x3/uL (4.8-10.8)
[2019-04-23 22:16] LABS: CALC OSMOLALITY 282 mosm/kg (275-300); CARBON DIOXIDE 28.2 mmol/L (21.0-32.0); CHLORIDE - SERUM 105 mmol/L (98-107); CREATININE - SERUM 0.8 mg/dL (0.6-1.3); GLUCOSE 152 mg/dL (74-106); POTASSIUM - SERUM 3.6 mmol/L (3.5-5.1); SODIUM 139 mmol/L (136-145); UREA NITROGEN 17 mg/dL (7-18); eGFR NON AFRICAN AMERICAN 72 mL/min (90-120)
[2019-04-23 22:23] LABS: ALBUMIN 3.4 g/dL (3.4-5.0); ALKALINE PHOSPHATASE 65 U/L (30-120); ALT (SGPT) 22 U/L (10-68); AMYLASE - SERUM 125 U/L (25-115); BILIRUBIN - TOTAL 0.43 mg/dL (0.2-1.3); LIPASE 305 U/L (73-393); PROTEIN - SERUM 7.5 g/dL (6.4-8.2); TROPONIN-I < 0.017 ng/mL (0.000-0.060)
[2019-04-23 22:30] LABS: PLATELET COUNT 225 10x3/uL (130-400)
[2019-04-24] VITALS (7 sets, daily range): BP systolic 122–188; BP diastolic 62–89; Ht 175.3 cm; Wt 83.9 kg
[2019-04-24] MEDS ORDERED: BETAPACE 80 MG80 MG PO (00:31)
[2019-04-24 05:15] LABS: BASOPHILS 0.1 % (0-2); EOSINOPHILS 0.6 % (0-7); HEMATOCRIT 37.4 % (36.0-48.0); IMMATURE GRANULOCYTES 0.2 % (0-5); LYMPHOCYTES 9.9 % (15-50); MCHC 32.1 g/dL (31.0-37.0); MCV 93.5 fL (80.0-100.0); MEAN PLATELET VOLUME 11.2 fL (7.4-10.4); MONOCYTES 8.7 % (2-11); NEUTROPHILS 80.5 % (40-80); PLATELET COUNT 216 10x3/uL (130-400); RDW 13.5 % (11.5-14.5); WBC 10.2 10x3/uL (4.8-10.8)
[2019-04-24 05:31] LABS: ALBUMIN 3.2 g/dL (3.4-5.0); ALKALINE PHOSPHATASE 61 U/L (30-120); ALT (SGPT) 19 U/L (10-68); BILIRUBIN - TOTAL 0.24 mg/dL (0.2-1.3); CALC OSMOLALITY 287 mosm/kg (275-300); CALCIUM 8.2 mg/dL (8.5-10.1); CHLORIDE - SERUM 108 mmol/L (98-107); CREATININE - SERUM 0.7 mg/dL (0.6-1.3); GLUCOSE 139 mg/dL (74-106); MAGNESIUM - SERUM 2.2 mg/dL (1.8-2.4); PHOSPHOROUS 2.8 mg/dL (2.5-4.9); POTASSIUM - SERUM 3.6 mmol/L (3.5-5.1); PROTEIN - SERUM 6.7 g/dL (6.4-8.2); SODIUM 143 mmol/L (136-145); UREA NITROGEN 15 mg/dL (7-18); eGFR NON AFRICAN AMERICAN 84 mL/min (90-120)
--- NOTE | 2019-04-24 15:13 | MORECARE ---
CASE MANAGEMENT DISCHARGE SUMMARY PATIENT: MAKENNA JIN UNIT: [id number] ADM DATE: 04/23/19 AGE: 88 : 32 SEX: F ROOM/BED: D.2237 AUTHOR: MARLEEN,DOC PHYSICIAN: REFERRING PHYSICIAN: SLOAN LANDA MD DATE OF SERVICE: 04/24/19 Discharge Plan Patient Name: MAKENNA JIN Facility: [facility]:[place] : 1930 Planned Disposition: Home Anticipated Discharge Date: 04/24/19 Discharge Date: Expected LOS: 1 Initial Reviewer: [email or web address] Initial Review Date: 04/24/2019 Generated: 04/24/19 4:12 pm Comments DCP- Discharge Planning Updated by [email or web address]: Selma Torres on 04/24/19 2:[address] Patient Name: MAKENNA JIN Admission Status: ER Accout number: [id number] Admission Date: 04-23-2019 : 1930 Admission Diagnosis: Attending: SLOAN LANDA Current LOS: 1 Anticipated DC Date: 04-24-2019 Planned Disposition: Home Primary Insurance: MEDICARE A & B Discharge Planning Comments: CM met with patient to complete initial dc planning assessment. CM educated patient on the CM role and verbal consent given by patient to complete assessment. Patient lives at home with her daughter, Emily. At discharge patient plans to return and feels this is a safe discharge. CM discussed availability of home health, rehab services, and medical equipment. Patient denied known discharge needs at this time. CM will continue to follow and will assist as needed with dc plans/needs. Automotive Welder: Selma Torres DCPIA - Discharge Planning Initial Assessment Updated by [email or web address]: Selma Torres on 04/24/19 3:06 pm * Is the patient Alert and Oriented? Yes * How many steps to enter\exit or inside your home? 4/0 * PCP Dr. Landa * Pharmacy [facility] * Preadmission Environment Home with Family * ADLs Partial Dependent * Partial ADLs (Assistance needed) Ambulation Medication Management * Equipment Cane Nebulizer Oxygen Shower Chair Walker Wheelchair * List name and contact numbers for known caregivers / representatives who currently or will assist patient after discharge: Emily Keys DTR - [phone] Ute Carter - DTR - [phone] Selma Jin - DTR - [phone] * Verbal permission to speak to the caregivers and representatives has been obtained from the patient. Yes * Community resources currently utilized None * Please name any agencies selected above. [facility] for CPAP/oxygen supplies * Additional services required to return to the preadmission environment? No * Can the patient safely return to the preadmission environment? Yes * Has this patient been hospitalized within the prior 30 days at any hospital? No Coverage Notice Reviewer: [id number] Malachi Torres Notice Issued Date-Time: 04/24/2019 15:07 Notice Type: Medicare Outpatient Observation Notice Notice Delivered To: Family Member Relationship to Patient: Daughter Cyber Operator Name: Emily Keys Delivery Method: HAND - Hand Delivered Kala Days: Prior Verbal Notification: Recipient Understood Notice: Yes Recipient Signature: Yes Med Rec Note Co-signed by Attending: Coverage Notice Comment: IVLLAGRAN explained, signed by daughter, given, copy placed in MR Patient Name: MAKENNA JIN Page [phone] at 1513 All edits/amendments must be made on the electronic document DICTATION DATE: 04/24/19 151 EQUITY STRUCTURER: NEVA 04/24/19 151 RPT#: [id number] DC DATE: STATUS: ADM IN [facility] [address] [place] [address] END OF REPORT
[2019-04-25] VITALS: BP 114/40
[2019-04-25 07:10] LABS: BASOPHILS 0.2 % (0-2); EOSINOPHILS 1.9 % (0-7); HEMATOCRIT 31.6 % (36.0-48.0); IMMATURE GRANULOCYTES 0.2 % (0-5); LYMPHOCYTES 27.3 % (15-50); MCH 29.9 pg (26.0-34.0); MCHC 31.6 g/dL (31.0-37.0); MCV 94.6 fL (80.0-100.0); MONOCYTES 12.9 % (2-11); NEUTROPHILS 57.5 % (40-80); PLATELET COUNT 174 10x3/uL (130-400); RBC 3.34 10x6/uL (4.00-5.40)
[2019-04-25 07:11] LABS: WBC 5.3 10x3/uL (4.8-10.8)
[2019-04-25 07:21] LABS: CALC OSMOLALITY 289 mosm/kg (275-300); CALCIUM 7.5 mg/dL (8.5-10.1); CARBON DIOXIDE 26.3 mmol/L (21.0-32.0); CHLORIDE - SERUM 111 mmol/L (98-107); CREATININE - SERUM 0.7 mg/dL (0.6-1.3); GLUCOSE 102 mg/dL (74-106); POTASSIUM - SERUM 3.1 mmol/L (3.5-5.1); SODIUM 145 mmol/L (136-145); UREA NITROGEN 14 mg/dL (7-18); eGFR NON AFRICAN AMERICAN 84 mL/min (90-120)
[2019-04-25 08:11] VITALS: BP 129/55
[2019-04-25 08:41] VITALS: BP 146/55
--- NOTE | 2019-04-25 12:20 | MORECARE ---
CASE MANAGEMENT DISCHARGE SUMMARY PATIENT: MAKENNA JIN UNIT: [id number] ADM DATE: 04/24/19 AGE: 88 : 32 SEX: F ROOM/BED: D.2237 AUTHOR: ANNELISE HAWLEY PHYSICIAN: REFERRING PHYSICIAN: SLOAN LANDA MD DATE OF SERVICE: 04/25/19 Discharge Plan Patient Name: MAKENNA JIN Facility: [facility]:[place] : 1930 Planned Disposition: Home Anticipated Discharge Date: 04/24/19 Discharge Date: 04/25/2019 Expected LOS: 1 Initial Reviewer: [email or web address] Initial Review Date: 04/24/2019 Generated: 04/25/19 1:19 pm Comments DCP- Discharge Planning Updated by [email or web address]: Selma Torres on 04/25/19 11:[address] Patient Name: MAKENNA JIN Encounter No: [id number] : 1930 Primary Insurance: MEDICARE A & B Anticipated DC Date: 04-24-2019 Planned Disposition: Home External Planned Provider: : DCP follow-up note: Patient and family in agreement with discharge plan. No changes to plan. DaughterUte will take home and is in the room. Both patient and daughter decline home health. Case management will follow and assist as needed. Selma Torres DCP- Discharge Planning Updated by [email or web address]: Selma Torres on 04/24/19 2:[address] Patient Name: MAKENNA JIN Admission Status: ER Accout number: [id number] Admission Date: 04-23-2019 : 1930 Admission Diagnosis: Attending: SLOAN LANDA Current LOS: 1 Anticipated DC Date: 04-24-2019 Planned Disposition: Home Primary Insurance: MEDICARE A & B Discharge Planning Comments: CM met with patient to complete initial dc planning assessment. CM educated patient on the CM role and verbal consent given by patient to complete assessment. Patient lives at home with her daughter, Emily. At discharge patient plans to return and feels this is a safe discharge. CM discussed availability of home health, rehab services, and medical equipment. Patient denied known discharge needs at this time. CM will continue to follow and will assist as needed with dc plans/needs. Sales Order Specialist: Selma Melissa DCPIA - Discharge Planning Initial Assessment Updated by [email or web address]: Selma Torres on 04/24/19 3:06 pm * Is the patient Alert and Oriented? Yes * How many steps to enter\exit or inside your home? 4/0 * PCP Dr. Landa * Pharmacy [facility] * Preadmission Environment Home with Family * ADLs Partial Dependent * Partial ADLs (Assistance needed) Ambulation Medication Management * Equipment Cane Nebulizer Oxygen Shower Chair Walker Wheelchair * List name and contact numbers for known caregivers / representatives who currently or will assist patient after discharge: Emily Keys DTR - [phone] Ute Raul - DTR - [phone] Selma Jin - DTR - [phone] * Verbal permission to speak to the caregivers and representatives has been obtained from the patient. Yes * Community resources currently utilized None * Please name any agencies selected above. [facility] for CPAP/oxygen supplies * Additional services required to return to the preadmission environment? No * Can the patient safely return to the preadmission environment? Yes * Has this patient been hospitalized within the prior 30 days at any hospital? No Coverage Notice Reviewer: [id number] - Selma Torres Notice Issued Date-Time: 04/24/2019 15:07 Notice Type: Medicare Outpatient Observation Notice Notice Delivered To: Family Member Relationship to Patient: Daughter Partition Making Machine Operator Name: Emily Keys Delivery Method: HAND - Hand Delivered Kala Days: Prior Verbal Notification: Recipient Understood Notice: Yes Recipient Signature: Yes Med Rec Note Co-signed by Attending: Coverage Notice Comment: VILLAGRAN explained, signed by daughter, given, copy placed in MR Last DP export: 04/24/19 2:13 p Patient Name: MAKENNA JIN Page [phone] at 1220 All edits/amendments must be made on the electronic document DICTATION DATE: 04/25/19 1219 OPHTHALMIC TECHNICIAN APPRENTICE: NEVA 04/25/19 1219 RPT#: [id number] DC DATE:04/25/19 STATUS: DIS IN [facility] [address] [place] [address] END OF REPORT
--- NOTE | 2019-04-28 09:28 | MORECARE ---
CASE MANAGEMENT DISCHARGE SUMMARY PATIENT: MAKENNA JIN UNIT: [id number] ADM DATE: 04/24/19 AGE: 88 : 32 SEX: F ROOM/BED: D.2237 AUTHOR: ANNELISE HAWLEY PHYSICIAN: REFERRING PHYSICIAN: SLOAN LANDA MD DATE OF SERVICE: 04/28/19 Discharge Plan Patient Name: MAKENNA JIN Facility: [facility]:[place] : 1930 Planned Disposition: Home Anticipated Discharge Date: 04/24/19 Discharge Date: 04/25/2019 Expected LOS: 1 Initial Reviewer: [email or web address] Initial Review Date: 04/24/2019 Generated: 04/28/19 10:28 am Comments DCP- Discharge Planning Updated by [id number]: eSlma Torres on 04/25/19 11:[address] Patient Name: MAKENNA JIN Encounter No: [id number] : 1930 Primary Insurance: MEDICARE A & B Anticipated DC Date: 04-24-2019 Planned Disposition: Home External Planned Provider: : DCP follow-up note: Patient and family in agreement with discharge plan. No changes to plan. DaughterUte will take home and is in the room. Both patient and daughter decline home health. Case management will follow and assist as needed. Selma Torres DCP- Discharge Planning Updated by [email or web address]: Selma Torres on 04/24/19 2:[address] Patient Name: MAKENNA JIN Admission Status: ER Accout number: [id number] Admission Date: 04-23-2019 : 1930 Admission Diagnosis: Attending: SLOAN LANDA Current LOS: 1 Anticipated DC Date: 04-24-2019 Planned Disposition: Home Primary Insurance: MEDICARE A & B Discharge Planning Comments: CM met with patient to complete initial dc planning assessment. CM educated patient on the CM role and verbal consent given by patient to complete assessment. Patient lives at home with her daughter, Emily. At discharge patient plans to return and feels this is a safe discharge. CM discussed availability of home health, rehab services, and medical equipment. Patient denied known discharge needs at this time. CM will continue to follow and will assist as needed with dc plans/needs. Collection Officer: Selma Melissa DCPIA - Discharge Planning Initial Assessment Updated by [email or web address]: Selma Torres on 04/24/19 3:06 pm * Is the patient Alert and Oriented? Yes * How many steps to enter\exit or inside your home? 4/0 * PCP Dr. Landa * Pharmacy [facility] * Preadmission Environment Home with Family * ADLs Partial Dependent * Partial ADLs (Assistance needed) Ambulation Medication Management * Equipment Cane Nebulizer Oxygen Shower Chair Walker Wheelchair * List name and contact numbers for known caregivers / representatives who currently or will assist patient after discharge: Emily Keys DTR - [phone] Ute Raul - DTR - [phone] Selma Jin - DTR - [phone] * Verbal permission to speak to the caregivers and representatives has been obtained from the patient. Yes * Community resources currently utilized None * Please name any agencies selected above. [facility] for CPAP/oxygen supplies * Additional services required to return to the preadmission environment? No * Can the patient safely return to the preadmission environment? Yes * Has this patient been hospitalized within the prior 30 days at any hospital? No Coverage Notice Reviewer: [id number] - Selma Torres Notice Issued Date-Time: 04/24/2019 15:07 Notice Type: Medicare Outpatient Observation Notice Notice Delivered To: Family Member Relationship to Patient: Daughter Scratch Finisher Name: Emily Keys Delivery Method: HAND - Hand Delivered Kala Days: Prior Verbal Notification: Recipient Understood Notice: Yes Recipient Signature: Yes Med Rec Note Co-signed by Attending: Coverage Notice Comment: VILLAGRAN explained, signed by daughter, given, copy placed in MR Last DP export: 04/25/19 11:20 a Patient Name: MAKENNA JIN Page [phone] at 0928 All edits/amendments must be made on the electronic document DICTATION DATE: 04/28/19927 DESIGN VERIFICATION ENGINEER: NEVA 04/28/19927 RPT#: [id number] DC DATE:04/25/19 STATUS: DIS IN [facility] [address] [place] [address] END OF REPORT
== END 2019-04-25 10:00 | disposition home or self-care (01) | DRG 390 ==
LOC: D.ER 20:56 → OBSVTIME 22:56 → D.MS 22:56
PROVIDERS: Family Medicine; ADMIT Family Medicine; ATTEND Family Medicine
DX: K56.41 Fecal impaction (principal); I48.91 Unspecified atrial fibrillation; I10 Essential (primary) hypertension; K21.9 Gastro-esophageal reflux disease without esophagitis; J44.9 Chronic obstructive pulmonary disease, unspecified; M19.90 Unspecified osteoarthritis, unspecified site; M54.9 Dorsalgia, unspecified

== ENCOUNTER → 2019-04-30 17:04 | Outpatient (CLI) | payer MEDICARE ==
[2019-04-24 13:37] VITALS: BMI 26.1
[2019-04-30 17:36] LABS: BASOPHILS 0.4 % (0-2); EOSINOPHILS 4.4 % (0-7); IMMATURE GRANULOCYTES 0.2 % (0-5); LYMPHOCYTES 27.5 % (15-50); MCH 30.4 pg (26.0-34.0); MCHC 33.3 g/dL (31.0-37.0); MCV 91.1 fL (80.0-100.0); MEAN PLATELET VOLUME 10.9 fL (7.4-10.4); MONOCYTES 14.4 % (2-11); NEUTROPHILS 53.1 % (40-80); RBC 4.28 10x6/uL (4.00-5.40); RDW 13.4 % (11.5-14.5); WBC 5.4 10x3/uL (4.8-10.8)
[2019-04-30 17:40] LABS: ANION GAP 11.9 mmol/L (8-16); CALCIUM 9.3 mg/dL (8.5-10.1); CREATININE - SERUM 0.8 mg/dL (0.6-1.3); MAGNESIUM - SERUM 1.9 mg/dL (1.8-2.4); POTASSIUM - SERUM 3.9 mmol/L (3.5-5.1)
[2019-04-30 17:54] LABS: PLATELET COUNT 271 10x3/uL (130-400)
== END | disposition home or self-care (01) ==
LOC: D.LABREF 17:04
PROVIDERS: ATTEND Internal Medicine Cardiovascular Disease
DX: I10 Essential (primary) hypertension (principal); R06.00 Dyspnea, unspecified

== ENCOUNTER 2019-11-02 18:45 | Emergency (ER) | payer MEDICARE ==
[2019-11-02 18:55] VITALS: BP 152/80; Ht 175.3 cm
== END 2019-11-02 22:13 | disposition home or self-care (01) ==
LOC: D.ER 18:45
DX: T16.1XXA Foreign body in right ear, initial encounter (principal); I10 Essential (primary) hypertension; J44.9 Chronic obstructive pulmonary disease, unspecified; Z99.81 Dependence on supplemental oxygen; G62.9 Polyneuropathy, unspecified; K21.9 Gastro-esophageal reflux disease without esophagitis

== ENCOUNTER 2020-05-31 17:55 | Emergency (ER) | payer MEDICARE ==
[2020-05-31 18:50] LABS: BASOPHILS 0.2 % (0-2); HEMATOCRIT 37.3 % (36.0-48.0); HEMOGLOBIN 11.9 g/dL (12-16); IMMATURE GRANULOCYTES 0.2 % (0-5); LYMPHOCYTE ABS# 2.06 10x3/uL (1.18-3.74); LYMPHOCYTES 36.9 % (15-50); MCH 30.1 pg (26.0-34.0); MCHC 31.9 g/dL (31.0-37.0); MCV 94.4 fL (80.0-100.0); MEAN PLATELET VOLUME 11.1 fL (7.4-10.4); MONOCYTES 12.7 % (2-11); NEUTROPHIL ABS# 2.63 10x3/uL (1.56-6.13); PLATELET COUNT 221 10x3/uL (130-400); RBC 3.95 10x6/uL (4.00-5.40); RDW 13.6 % (11.5-14.5); WBC 5.6 10x3/uL (4.8-10.8)
[2020-05-31] MEDS ORDERED: CARDIZEM CD180 MG PO (18:53)
[2020-05-31 18:58] LABS: ANION GAP 9.6 mmol/L (8-16); CALCIUM 8.8 mg/dL (8.5-10.1); CARBON DIOXIDE 30.4 mmol/L (21.0-32.0); CREATININE - SERUM 0.8 mg/dL (0.6-1.3)
[2020-05-31 19:05] LABS: ALBUMIN 3.4 g/dL (3.4-5.0); BILIRUBIN - TOTAL 0.15 mg/dL (0.2-1.3); PROTEIN - SERUM 6.9 g/dL (6.4-8.2)
[2020-05-31] MEDS ORDERED: DILTIAZEM 24HR120 M3 PO (19:15)
[2020-05-31 19:22] LABS: CREATINE KINASE 28 UL (21-215); MAGNESIUM - SERUM 1.9 mg/dL (1.8-2.4); THYROID STIMULATING HORMONE 1.72 uIU/mL (0.36-3.74)
[2020-05-31 19:26] LABS: TROPONIN-I < 0.017 ng/mL (0.000-0.060)
== END 2020-05-31 20:15 | disposition home or self-care (01) ==
LOC: D.ER 17:55
PROVIDERS: Emergency Medicine
DX: R51.9 Headache, unspecified (principal); I10 Essential (primary) hypertension; I48.91 Unspecified atrial fibrillation; J44.9 Chronic obstructive pulmonary disease, unspecified; K21.9 Gastro-esophageal reflux disease without esophagitis

== ENCOUNTER 2020-08-24 10:13 | Emergency (ER) | payer MEDICARE ==
[~2020-08-24] VITALS: Ht 175.3 cm; Wt 85.5 kg
[~2020-08-24 10:13] MED LIST changes: +CARDIZEM CD180 MG PO; +DILTIAZEM 24HR120 M3 PO
[2020-08-24 10:34] VITALS: Ht 175.3 cm; Wt 85.5 kg
[2020-08-24 12:01] LABS: BASOPHILS 0.7 % (0-2); EOSINOPHILS 2.6 % (0-7); HEMATOCRIT 36.7 % (36.0-48.0); HEMOGLOBIN 11.9 g/dL (12-16); LYMPHOCYTES 28.1 % (15-50); MCH 29.9 pg (26.0-34.0); MCHC 32.3 g/dL (31.0-37.0); MCV 92.6 fL (80.0-100.0); MEAN PLATELET VOLUME 9.4 fL (7.4-10.4); MONOCYTES 14.5 % (2-11); NEUTROPHILS 54.1 % (40-80); PLATELET COUNT 197 10x3/uL (130-400); RBC 3.97 10x6/uL (4.00-5.40); RDW 14.8 % (11.5-14.5); WBC 5.5 10x3/uL (4.8-10.8)
[2020-08-24 12:09] LABS: CALC OSMOLALITY 281 mosm/kg (275-300); CALCIUM 8.6 mg/dL (8.5-10.1); CARBON DIOXIDE 31.3 mmol/L (21.0-32.0); CHLORIDE - SERUM 106 mmol/L (98-107); CREATININE - SERUM 0.9 mg/dL (0.6-1.3); GLUCOSE 100 mg/dL (74-106); POTASSIUM - SERUM 4.2 mmol/L (3.5-5.1); SODIUM 141 mmol/L (136-145); UREA NITROGEN 16 mg/dL (7-18); eGFR NON AFRICAN AMERICAN 62 mL/min (90-120)
[2020-08-24 12:25] LABS: ALBUMIN 3.4 g/dL (3.4-5.0); ALKALINE PHOSPHATASE 76 U/L (30-120); ALT (SGPT) 63 U/L (10-68); CKMB 0.6 U/L (0.0-3.6); CREATINE KINASE 31 UL (21-215); PROTEIN - SERUM 7.1 g/dL (6.4-8.2); TROPONIN-I < 0.017 ng/mL (0.000-0.060)
[2020-08-24 13:02] VITALS: BP 137/96
[2020-08-25] MEDS ORDERED: ELIQUIS2.5 MG PO (21:41)
[2020-08-25] MEDS ORDERED: AMOXICILLIN500 M1 PO (21:42)
== END 2020-08-24 14:54 | disposition home or self-care (01) ==
LOC: D.ER 10:13
PROVIDERS: Nurse Practitioner Family
DX: I48.91 Unspecified atrial fibrillation (principal); R06.00 Dyspnea, unspecified; I10 Essential (primary) hypertension; J44.9 Chronic obstructive pulmonary disease, unspecified; K21.9 Gastro-esophageal reflux disease without esophagitis

== ENCOUNTER 2020-08-25 21:18 | Inpatient (IN) | payer MEDICARE ==
[~2020-08-25] VITALS: Ht 175.3 cm; Wt 97.7 kg
--- NOTE | ~2020-08-25 | HEMODYNAMI ---
PATIENT:MAKENNA VALENZUELA MEDICAL RECORD: [id number] : 34 [facility]# [id number] ADMISSION DATE: 08/25/20 Generatedon:116:06 Patient name: MAKENNA VALENZUELA Patient #: [id number] SSN: D OB: 1930 Date of study: 08/26/2020 Page: Of Hemodynamic Procedure Report Patient Data Patient Demographics Procedure consent was obtained First Name: MAKENNA Gender: Female Last Name: BIANCA : 1930 Patient #: [id number] Age: 89 year(s) Race: Unknown Additional ID: [id number] Contact details Address: [address] [place] [address] State: [place] City: [facility] Zip code: [address] Past Medical History Allergies Allergen Reaction Date Comments Reported Other allergy 07/26/2018 Sulfamethoxazole, trimethoprim, atorvastatin calcium, hydrochlorothiazide, imiquimod, methyldopa, methyldopate HCL. Other allergy 08/26/2020 MACROBID, SULFA, TRIMETHOPRIM, ATORVASTIN, HCTZ, IMIQUIMOD, ALDOMET Admission Admission Data Admission Date: 08/25/2020 Admission Time: 23:57 Admit Source: Other Room #: D.4 Lab Results Lab Result Date: 08/26/2020 Lab Result Time: 0:00 Biochemistry Name Units Result Min Max BUN mg/dl 18 --(---*)-- 7 18 CK-MB ng/ml 1.1 --(-*--)-- 0 3.6 Creatinine mg/dl 0.9 --(-*--)-- 0.6 1.3 eGFR ml/min 61.24586 *-(----)-- 90 120 NONAFRICAN Troponin l ng/ml 0.017 --(-*--)-- 0 0.06 CBC Name Units Result Min Max Hematocrit % 38.2 *-(----)-- 42 54 Hemoglobin g/dl 12.4 *-(----)-- 13.5 17.5 Procedure Procedure Types Cath Procedure Diagnostic Procedure Cardioversion External Procedure Description Procedure Date Procedure Date: 08/26/2020 Procedure Start Time: 15:39 Procedure End Time: 15:48 Procedure Staff Name Function Xenia Cross RT Scrub Alpesh Trejo MD Performing Physician Miri Valentin RT Monitor Luciano Ohara RN Nurse Procedure Data Cath Procedure Estimated blood loss: 0 ml Procedure Complications No complications Procedure Medications Medication Administration Route Dosage 0.9% NaCl I.V. 25 ml/hr Oxygen NC 4 l/min Versed I.V. 1 mg Fentanyl I.V. 50 mcg Versed I.V. 1 mg Fentanyl I.V. 50 mcg Amiodarone Loading I.V. drip 150 mg Dose (150mg/100ml D5W) Hemodynamics Rest HGB: 12.4 (g/dl) Heart Rate: 103 (bpm) Snapshots Pre Cath Intra NCS Post Cath Vital Signs Time Heart Resp SPO2 etCO2 NIBP (mmHg) Rhythm Pain Sedation Rate (ipm) (%) (mmHg) Status Level (bpm) 15:39:01 114 11 98 0 146/87(0) A-Fib 0 (11) 10(A) , No pain 15:43:50 123 10 92 0 140/89(0) A-Fib 0 (11) 9(A) , No pain 15:45:37 116 12 92 0 130/85(101) A-Fib 0 (11) 9(A) , No pain 15:50:19 118 10 96 0 119/82(102) A-Fib 0 (11) 9(A) , No pain 15:53:03 117 9 96 0 105/83(102) A-Fib 0 (11) 9(A) , No pain 15:56:03 65 10 97 0 128/72(94) NSR 0 (11) 10(A) , No pain Medications Time Medication Route Dose Verified Delivered Reason Notes Effective ness by by 15:34:49 0.9% NaCl I.V. 25 Alpesh Luciano used for ml/hr St Josef mejia MD 15:35:01 Oxygen NC 4 Alpesh Hewitty used for l/min St Josef Ohara RN procedure 15:36:45 Versed I.V. 1 mg Alpesh Luciano for St Josef Ohara RN sedation 15:36:50 Fentanyl I.V. 50 Alpesh Wolf for mcg St Josef Ohara RN sedation 15:40:10 Versed I.V. 1 mg Alpesh Wolf for [facility] Josef Ohara RN sedation 15:40:12 Fentanyl I.V. 50 Alpesh Wolf for mcg St Josef Ohara RN sedation 16:02:12 Amiodarone I.V. 150 Alpesh Wolf Per via Loading Dose drip mg St Josfe Ohara RN physician pump (150mg/100ml for D5W) bolus dosing with filter in place. Procedure Log Time Note 15:05:20 Diagnostic Cath Status : Urgent 15:06:13 Procedure Status Cardioversion. 15:06:19 Time tracking: Regular hours (M-F 7:00 - 5:00) 15:06:23 Plan of Care:Hemodynamics will remain stable., Cardiac rhythm will remain stable., Comfort level will be maintained., Respiratory function will remain adequate., Patient/ family verbilizes understanding of procedure., Procedure tolerated without complication., Recovers from procedure without complications.. 15:16:34 Luciano Ohara RN sent for patient. Start room use. 15:20:15 Lab Result : eGFR NONAFRICAN 61.35623 ml/min 15:20:15 Lab Result : Hemoglobin 12.4 g/dl 15:20:15 Lab Result : Hematocrit 38.2 % 15:20:15 Lab Result : Troponin l 0.017 ng/ml 15:20:15 Lab Result : BUN 18 mg/dl 15:20:15 Lab Result : Creatinine 0.9 mg/dl 15:20:15 Lab Result : CK-MB 1.1 ng/ml 15:21:29 Admit Source: Other 15:21:36 ACC Patient presents with Stable Angina CCS Anginal Class 2--Slight limitation of ordinary activity. 15:21:49 H&P Date Dictated: 08/26/2020 ER History on chart.. 15:21:52 Family unavailable. 15:21:54 Patient NPO since Breakfast. 15:23:38 Patient allergic to Other allergyMACROBID, SULFA, TRIMETHOPRIM, ATORVASTIN, HCTZ, IMIQUIMOD, ALDOMET 15:23:44 Lab results completed and on chart. 15:23:48 Stress Test: no; N/A . 15:23:50 Alarms reviewed by R. N. 15:23:51 Sharps counted by scrub and verified by R.N. 15:27:59 Patient received from ED to CCL 2 Alert and oriented. Tansferred to table in Supine position. 15:28:03 Signed procedure consent form obtained from patient. 15:28:04 Correct patient and procedure confirmed by team. 15:28:04 Warm blankets applied, and meng hugger turned on for patient comfort. 15:28:05 ECG and BP/O2 sat monitors applied to patient. 15:28:06 Full Disclosure recording started 15::07 Pre-procedure instructions explained to patient. 15:28:08 Pre-op teaching completed and patient verbalized understanding. 15:28:15 Is patient on blood thinner?Yes 15:28:17 Patient diabetic? No. 15:28:19 If diabetic: On Metformin? N/A 15:28:21 Patient not . Patient is over age 55. 15:28:22 ----Pre-sedation anethsthesia assessment.---- 15:28:26 Previous problem with sedation/anesthesia? No ? 15:28:28 Snore? Yes 15:28:29 Sleep apnea? Yes 15:28:31 Deviated septum? No 15:28:32 Opens mouth fully? Yes 15:28:33 Sticks out tongue? Yes 15:28:42 Airway obstruction? Yes COPD 15:28:45 Dentures? No ? 15:28:50 Patient pain scale 0/10 ?. 15:29:17 Quick Combo opened to sterile field. 15:29:21 Quick combo pads placed on patients chest and back. 15:34:16 Final Timeout: patient, procedure, and site verified with staff and physician. All members of the team are in agreement. 15:34:16 --------ALL STOP TIME OUT------ 15:34:19 Mid Chest site verified by team. 15:34:23 Fire Safety Assessment: A--An alcohol-based skin anteseptic being used preoperatively., C--Open oxygen or nitrous oxide is being used., D--An ESU, laser, or fiber-optic light is being used. 15:34:27 Sedation plan: IV Moderate Sedation Medication:Versed, Fentanyl 15:34:32 Physical assessment completed. ASA score P 2 - A patient with mild systemic disease as per Alpesh Trejo MD. 15:34:49 0.9% NaCl 25 ml/hr I.V. was administered by Luciano Ohara RN; used for procedure; Verbal order read back and verified. 15:35:01 Oxygen 4 l/min NC was administered by Luciano Ohara RN; used for procedure; Verbal order read back and verified. 15:35:16 Baseline sample Acquired. 15:35:21 Rhythm: atrial fibrillation 15:36:45 Versed 1 mg I.V. was administered by Luciano Ohara RN; for sedation; Verbal order read back and verified. 15:36:50 Fentanyl 50 mcg I.V. was administered by Luciano Ohara RN; for sedation; Verbal order read back and verified. 15:39:12 ------Cardioversion------ 15:39:15 Procedure started. 15:39:18 Defibrillator synced and charged to 200 Joules. 15:39:24 Shock delivered. 15:39:38 Unsuccessful cardioversion. 15:39:40 Defibrillator synced and charged to 300 Joules. 15:40:10 Versed 1 mg I.V. was administered by Luciano Ohara RN; for sedation; Verbal order read back and verified. 15:40:12 Fentanyl 50 mcg I.V. was administered by Luciano Ohara RN; for sedation; Verbal order read back and verified. 15:40:21 Unsuccessful cardioversion. 15:41:36 Defibrillator synced and charged to 360 Joules. 15:41:42 Shock delivered. 15:42:39 Unsuccessful cardioversion. 15:42:59 Procedure ended.(Physican Out) 15:43:17 Post Procedure Pulses reassessed and unchanged 15:43:21 Post procedure: right dorsailis pedis pulse 1+ Palpable, but thready & weak; easily obliterated. 15:43:26 Post procedure rhythm: atrial fibrillation 15:43:29 Estimated blood loss: 0 ml 15:43:31 Patient needs reinforcement of post procedure teaching. 15:43:31 Post procedure instruction explained to patient.Patient verbalizes understanding. 15:47:44 Procedure and supply charges have been captured, reviewed, submitted and are correct. 15:47:47 Procedure Complication : No complications 15:47:55 Operative report dictated upon procedure completion. 15:47:56 See physician's report for complete and final results. 15:48:02 Report given to [facility]. 15:48:08 Patient transfered to [facility] with Bed. 15:48:10 Full Disclosure recording stopped 15:48:10 Procedure ended. 15:48:17 End room use (Document Last) 15:48:27 End room use (Document Last) 15:48:43 End room use (Document Last) 16:02:12 Amiodarone Loading Dose (150mg/100ml D5W) 150 mg I.V. drip was administered by Luciano Ohara RN; Per physician; via pump for bolus dosing with filter in place. Verbal order read back and verified. Device Usage Item Manufacture Quantity Catalog Hospital Part Current Minimal Lot# / Name Number Charge Number Stock [facility] [place] mt# Code [employer] 1 [id number] Combo Signature Audit [place] Stage Time Signature Unsigned Intra-Procedure 08/26/2020 Miri Valentin 3:48:27 PM RT(R) Intra-Procedure 08/26/2020 Luciano Ohara RN 3:48:43 PM Intra-Procedure 08/26/2020 Miri Valentin 4:05:53 PM RT(R) Intra-Procedure 08/26/2020 Alpesh Harris 4:06:06 PM Josef SORIA Signatures Performing Physician : Signature : Alpesh Trejo MD Date : Time : Monitor : Miri Valentin Signature : RT Date : Time : Nurse : Luciano Ohara RN Signature : Date : [address] : [address] [place] [address]
[2020-08-25] MEDS ORDERED: ELIQUIS2.5 MG PO (21:41)
[2020-08-25] MEDS ORDERED: AMOXICILLIN500 M1 PO (21:42)
[2020-08-25 21:49] VITALS: BP 146/96
[2020-08-25 22:02] LABS: BASOPHILS 0.6 % (0-2); EOSINOPHILS 2.3 % (0-7); HEMATOCRIT 38.2 % (36.0-48.0); HEMOGLOBIN 12.4 g/dL (12-16); LYMPHOCYTES 25.4 % (15-50); MCHC 32.6 g/dL (31.0-37.0); MCV 92.2 fL (80.0-100.0); MONOCYTES 9.2 % (2-11); NEUTROPHILS 62.5 % (40-80); PLATELET COUNT 213 10x3/uL (130-400); RBC 4.14 10x6/uL (4.00-5.40); RDW 14.3 % (11.5-14.5)
[2020-08-25 22:11] LABS: APTT 40.1 SECONDS (22.8-39.4); CALC OSMOLALITY 286 mosm/kg (275-300); CALCIUM 8.6 mg/dL (8.5-10.1); CARBON DIOXIDE 25.7 mmol/L (21.0-32.0); CHLORIDE - SERUM 106 mmol/L (98-107); CREATININE - SERUM 0.9 mg/dL (0.6-1.3); INR 1.37 (0.85-1.17); POTASSIUM - SERUM 4.8 mmol/L (3.5-5.1); PROTIME 15.6 SECONDS (11.6-15.0); SODIUM 140 mmol/L (136-145); UREA NITROGEN 19 mg/dL (7-18); eGFR NON AFRICAN AMERICAN 62 mL/min (90-120)
[2020-08-25 22:12] LABS: GLUCOSE 201 mg/dL (74-106)
[2020-08-25 22:26] LABS: ALBUMIN 3.5 g/dL (3.4-5.0); ALKALINE PHOSPHATASE 90 U/L (30-120); ALT (SGPT) 55 U/L (10-68); BILIRUBIN - TOTAL 0.25 mg/dL (0.2-1.3); CKMB 0.9 U/L (0.0-3.6); CREATINE KINASE 44 UL (21-215); MAGNESIUM - SERUM 1.8 mg/dL (1.8-2.4); PROTEIN - SERUM 7.2 g/dL (6.4-8.2)
[2020-08-25 22:30] LABS: TROPONIN-I < 0.017 ng/mL (0.000-0.060)
[2020-08-25 22:32] LABS: WBC 7.6 10x3/uL (4.8-10.8)
[2020-08-25 23:00] VITALS: BP 132/88
[2020-08-26] VITALS (8 sets, daily range): BP systolic 110–159; BP diastolic 67–106; Ht 175.3 cm; Wt 97.7 kg
--- NOTE | 2020-08-26 02:48 | NUR ---
PT TO RADIOLOGY VIA STRETCHER
[2020-08-26 03:05] LABS: BASOPHILS 0.6 % (0-2); EOSINOPHILS 2.1 % (0-7); HEMATOCRIT 38.1 % (36.0-48.0); HEMOGLOBIN 12.3 g/dL (12-16); LYMPHOCYTES 24.1 % (15-50); MCHC 32.3 g/dL (31.0-37.0); MCV 92.8 fL (80.0-100.0); MEAN PLATELET VOLUME 9.7 fL (7.4-10.4); MONOCYTES 9.8 % (2-11); NEUTROPHILS 63.4 % (40-80); PLATELET COUNT 216 10x3/uL (130-400); RDW 14.7 % (11.5-14.5); WBC 8.6 10x3/uL (4.8-10.8)
[2020-08-26 03:09] LABS: APTT 33.6 SECONDS (22.8-39.4); INR 1.29 (0.85-1.17); PROTIME 14.9 SECONDS (11.6-15.0)
[2020-08-26 03:11] LABS: D-DIMER-QUANTITATIVE 0.54 ug/mLFEU (0.20-0.54)
[2020-08-26 03:11] LABS: BILIRUBIN NEGATIVE (NEGATIVE); KETONE NEGATIVE mg/dL (< 1+); NITRITE NEGATIVE (NEGATIVE); SQUAMOUS EPITHELIAL 2 HPF (0-4); UROBILINOGEN NORMAL mg/dL (< 2); WHITE CELLS - URINE 14 HPF (0-4)
--- NOTE | 2020-08-26 03:12 | NUR ---
PT RETURNED FROM RADIOLOGY
--- NOTE | 2020-08-26 03:20 | NUR ---
SHASTA PLACED ON PT, PT EDUCATED ON HOW IT WORKS. PT VERBALIZES UNDERSTANDING. FAMILY AT BEDSIDE, CALL LIGHT IN REACH.
[2020-08-26 03:44] LABS: ALBUMIN 3.5 g/dL (3.4-5.0); ALKALINE PHOSPHATASE 85 U/L (30-120); ALT (SGPT) 52 U/L (10-68); BILIRUBIN - TOTAL 0.19 mg/dL (0.2-1.3); CALC OSMOLALITY 284 mosm/kg (275-300); CALCIUM 8.4 mg/dL (8.5-10.1); CHLORIDE - SERUM 106 mmol/L (98-107); CREATINE KINASE 31 UL (21-215); CREATININE - SERUM 0.9 mg/dL (0.6-1.3); MAGNESIUM - SERUM 1.8 mg/dL (1.8-2.4); POTASSIUM - SERUM 4.6 mmol/L (3.5-5.1); PRO BNP 3941 pg/mL (0-450); PROTEIN - SERUM 7.3 g/dL (6.4-8.2); SODIUM 141 mmol/L (136-145); TROPONIN-I < 0.017 ng/mL (0.000-0.060); UREA NITROGEN 18 mg/dL (7-18); eGFR NON AFRICAN AMERICAN 62 mL/min (90-120)
[2020-08-26 04:04] LABS: GLUCOSE 133 mg/dL (74-106)
--- NOTE | 2020-08-26 04:16 | NUR ---
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 ATTEMPTED TO REORIENT PT. PT SHASTA REPLACED. CALL LIGHT IN REACH.
--- NOTE | 2020-08-26 05:01 | NUR ---
PT SITTING AT FOOT OF BED, PT PULLED OUT PUREWICK AGAIN. PT PLACED ON BEDPAN AND BED ALARM ATTACHED TO PT. CALL LIGHT IN REACH.
--- NOTE | 2020-08-26 05:30 | NUR ---
PT C/O NECK PAIN. SEE EMAR
--- NOTE | 2020-08-26 06:47 | NUR ---
PT PLACED ON BEDPAN AND INFORMED TO PRESS CALL LIGHT WHEN DONE, VERBALIZES UNDERSTANDING. CALL LIGHT IN REACH. BED ALARM ATTACHED TO PT.
[2020-08-26 09:29] LABS: CKMB 1.1 U/L (0.0-3.6); CREATINE KINASE 38 UL (21-215); TROPONIN-I < 0.017 ng/mL (0.000-0.060)
[2020-08-26 15:36] LABS: CKMB 1.5 U/L (0.0-3.6); CREATINE KINASE 78 UL (21-215)
[2020-08-26 15:38] LABS: TROPONIN-I < 0.017 ng/mL (0.000-0.060)
--- NOTE | 2020-08-26 16:12 | NUR ---
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
--- NOTE | 2020-08-26 16:22 | NUR ---
CARDIZEM GTT STOPPED AT 1500 IN ER AND CONT'D IN HEART CENTER PRIOR TO CARDIOVERSION.
[2020-08-27 02:18] VITALS: BP 120/62
[2020-08-27 06:23] LABS: BASOPHILS 0.4 % (0-2); EOSINOPHILS 1.2 % (0-7); HEMATOCRIT 35.2 % (36.0-48.0); HEMOGLOBIN 11.6 g/dL (12-16); LYMPHOCYTES 16.3 % (15-50); MCH 30.2 pg (26.0-34.0); MCHC 32.8 g/dL (31.0-37.0); MEAN PLATELET VOLUME 9.9 fL (7.4-10.4); NEUTROPHILS 73.1 % (40-80); PLATELET COUNT 194 10x3/uL (130-400); RBC 3.82 10x6/uL (4.00-5.40); RDW 14.3 % (11.5-14.5); WBC 8.9 10x3/uL (4.8-10.8)
[2020-08-27 06:32] LABS: ALBUMIN 3.4 g/dL (3.4-5.0); ANION GAP 12.5 mmol/L (8-16); BILIRUBIN - TOTAL 0.31 mg/dL (0.2-1.3); CALCIUM 8.5 mg/dL (8.5-10.1); CARBON DIOXIDE 29.4 mmol/L (21.0-32.0); CREATININE - SERUM 0.8 mg/dL (0.6-1.3); PROTEIN - SERUM 6.9 g/dL (6.4-8.2)
[2020-08-27 06:45] LABS: POTASSIUM - SERUM 3.9 mmol/L (3.5-5.1)
--- NOTE | 2020-08-27 07:40 | NUR ---
Lying in bed, awake/alert/oriented, T/R self ad yaya, cont of B/B with BSC with assist ad yaya, denies pain/other discomfort at this time, call light/phone/water within reach, no s/s of acute distress observed.
--- NOTE | 2020-08-27 07:50 | OP ---
PATIENT NAME: ELDA JIN MEDICAL RECORD: [id number] :34 LOCATION:D.M2 D.5 ADMISSION DATE:08/26/20 SURGEON: BERTIN FERNANDEZ MD DATE OF OPERATION: 08/26/2020 PROCEDURE: Cardioversion. DESCRIPTION OF PROCEDURE: After moderate sedation with IV Versed and fentanyl, a synchronized shock to 360 joules were performed in a stepwise fashion. We were able to restore atrial fibrillation to normal sinus rhythm. However, the patient would probably go back to atrial fibrillation. IMPRESSION: Successful temporary cardioversion on Elda Jin. At this point in time, we can have the amiodarone loading to hopefully facilitate chemical cardioversion, could consider a repeat cardioversion after tissue loading. During the procedure, the patient was monitored continuously with pulse oximetry and telemetry noninvasive blood pressure monitoring and was transferred to PCU in stable condition. TRANSINT:[id number] Voice Confirmation ID: [id number] DOCUMENT ID: [id number] BERTIN FERNANDEZ MD at 0750 CC: [id number] DICTATION DATE: 08/26/20 1610 WHARF OPERATOR: 08/26/201955 ADM IN [facility] [address] [id number]
[2020-08-27 08:00] VITALS: BP 121/65
[2020-08-27 12:00] VITALS: BP 143/67
--- NOTE | 2020-08-27 14:33 | NUR ---
ROUNDING DONE WITH PATIENT HAVING NASAL CANNULA ON, CALL LIGHT AT SIDE. DENIES NEEDS AT THIS TIME.
--- NOTE | 2020-08-27 14:36 | NUR ---
PAGE INTO CARDIOLOGY TO SEE IF WE CAN STOP THE CORDARONE DRIP. PATIENT IS RUNNING SR, HR 60-80.
--- NOTE | 2020-08-27 14:38 | NUR ---
ALENA NORMAN APN TO CALL AND NEW ORDERS RECEIVED.
--- NOTE | 2020-08-27 15:00 | NUR ---
IV RESITED TO RIGHT WRIST WITH 22 G.
[2020-08-27 16:00] VITALS: BP 133/88
--- NOTE | 2020-08-27 16:24 | NUR ---
I CALLED JM SANABRIA, DAUGHTER OF AMINATA TO REVIEW LIST OF MEDICATIONS.
[2020-08-27 20:23] VITALS: BP 125/57
[2020-08-28 00:32] VITALS: BP 108/54
[2020-08-28 04:53] VITALS: BP 125/50
[2020-08-28 06:38] LABS: BASOPHILS 0.4 % (0-2); EOSINOPHILS 2.8 % (0-7); HEMATOCRIT 30.5 % (36.0-48.0); HEMOGLOBIN 10.1 g/dL (12-16); LYMPHOCYTES 17.7 % (15-50); MCH 30.7 pg (26.0-34.0); MCHC 33.1 g/dL (31.0-37.0); MCV 92.8 fL (80.0-100.0); MEAN PLATELET VOLUME 9.7 fL (7.4-10.4); MONOCYTES 13.7 % (2-11); NEUTROPHILS 65.4 % (40-80); PLATELET COUNT 159 10x3/uL (130-400); RBC 3.28 10x6/uL (4.00-5.40); RDW 14.4 % (11.5-14.5); WBC 7.8 10x3/uL (4.8-10.8)
[2020-08-28 07:23] LABS: CALC OSMOLALITY 281 mosm/kg (275-300); CALCIUM 8.2 mg/dL (8.5-10.1); CARBON DIOXIDE 29.9 mmol/L (21.0-32.0); CHLORIDE - SERUM 105 mmol/L (98-107); CREATININE - SERUM 0.7 mg/dL (0.6-1.3); GLUCOSE 119 mg/dL (74-106); POTASSIUM - SERUM 3.9 mmol/L (3.5-5.1); SODIUM 141 mmol/L (136-145); UREA NITROGEN 13 mg/dL (7-18); eGFR NON AFRICAN AMERICAN 83 mL/min (90-120)
[2020-08-28 08:31] VITALS: BP 128/55
--- NOTE | 2020-08-28 08:53 | NUR ---
AM MEDS GIVEN AT THIS TIME. ALSO GAVE NORCO FOR PAIN LEVEL OF4/10. PT A/O X4, RESP EVEN AND UNLABORED. PT DENIES ANY NEEDS, CALL LIGHT IN REACH, DAUGHTER AT BEDSIDE, WILL CONTINUE PLAN OF CARE.
[2020-08-28] MEDS ORDERED: AMIODARONE HCL200 MG PO (09:44)
--- NOTE | 2020-08-28 11:28 | NUR ---
PROVIDED VERBAL AND WRITTEN DISCHARGE TEACHING TO PT, WHO VERBALIZED UNDERSTANDING REGARDING TEACHING. D/C RT HAND IV WITH CATHETER TIP INTACT. HEART MONITOR REMOVED. PT WILL CALL WHEN READT FOR WHEELCHAIR.
--- NOTE | 2020-08-28 11:51 | NUR ---
PT LEFT UNIT VIA WHEELCHAIR, WITH ALL BELONGINGS, NAD NOTED.
--- NOTE | 2020-08-28 15:30 | MORECARE ---
CASE MANAGEMENT DISCHARGE SUMMARY PATIENT: MAKENNA VALENZUELA UNIT: [id number] ADM DATE: 08/26/20 AGE: 89 : 32 SEX: F ROOM/BED: D.[facility]5 AUTHOR: MARLEEN,DOC PHYSICIAN: REFERRING PHYSICIAN: AARON QUINTANILLA MD DATE OF SERVICE: 08/28/20 Case Management Discharge Planning Summary DCP REVIEW SUMMARY ANTICIPATED D/C DATE: 08/28/2020 EXPECTED LOS : 2 CASE STATUS: DCP Initiated INITIAL REVIEW: 08/26/2020 INITIAL REVIEWER: Martinez Fisher FINAL DISCHARGE DISPOSITION: : FINAL REVIEWER: FINAL REVIEW DATE: DCP Focus Questions & Answers QUESTION: ANSWER : PATIENT: MAKENNA VALENZUELA ENCOUNTER: [id number] MEDICAL RECORD#: [id number] ADMISSION DATE: 08/26/2020 DISCHARGE DATE: 08/28/2020 ATTENDING MD: AARON TIRADO : AGE: 89 MARITAL STATUS: W DC PLAN ID: [id number] FACILITY: [facility] PRINTED ON: 08/28/20 15:30 CT All edits/amendments must be made on the electronic document DICTATION DATE: 08/28/20 153 ORTHO NURSE: DM 08/28/20 1530 RPT#: [id number] DC DATE:08/28/20 STATUS: DIS IN [address] [address] [place] [address] END OF REPORT
--- NOTE | 2020-08-28 15:43 | MORECARE ---
CASE MANAGEMENT DISCHARGE SUMMARY PATIENT: MAKENNA VALENZUELA UNIT: [id number] ADM DATE: 08/26/20 AGE: 89 : 32 SEX: F ROOM/BED: D.0945 AUTHOR: ANNELISE HAWLEY PHYSICIAN: REFERRING PHYSICIAN: AARON QUINTANILLA MD DATE OF SERVICE: 08/28/20 Case Management Discharge Planning Summary COMMENTS ENTERED DATE: 08/28/20 15:36 CT COMMENT TYPE: Discharge Planning REVIEWER: Martinez Fisher CM met with patient to complete DC plan and to evaluate needs. Patient lives independently with her daughter, Emily Keys, . Patient stated that her home is safe and has electricity and running water. Patient stated that the home has 4 steps to enter and she is able to manage the steps without difficulty. Patient stated that she has no problems paying for medications and she fills her medications at [facility]. Patient stated that her primary care physician is Dr. Kaye. At discharge, the patient plans to return home and feels this is a safe discharge. CM discussed availability of home health, rehab services, and medical equipment. Patient declined HHS, SNF, IPR, and DME. Patient stated that she has a walker, Shower Bench, Nebulizer, CPAP, and Home oxygen through [facility]. Patient voiced no other needs at this time and is satisfied with DC plan. Transportation provider at discharge will be with Emily. DC IMM delivered, explained, signed by the patient, and placed in chart. Signed form also left with the patient. CM will continue to follow and will assist as needed with dc plans/needs. DCP REVIEW SUMMARY ANTICIPATED D/C DATE: 08/28/2020 EXPECTED LOS : 2 CASE STATUS: DCP Initiated INITIAL REVIEW: 08/26/2020 INITIAL REVIEWER: Martinez Fisher FINAL DISCHARGE DISPOSITION: : FINAL REVIEWER: FINAL REVIEW DATE: DCP Focus Questions & Answers DCP Evaluation QUESTION: ANSWER Patient and/or caregiver agree upon recommended discharge plan? : Yes Patient's current cognitive status: : *Oriented to person, place, situation, time and present Patient's ability to cope with chronic illness : d. No chronic illness Patient gives permission to discuss discharge plans with: (name, relationship and number) : daughter, Emily Keys, Family / Caregiver's ability to cope with chronic illness: : a. Adequate (ability to meet patient's medical needs, ensures patient attends medical appts.) Does the patient have the ability to pay for or attain post discharge needs / services? : Yes Functional screen assessment: : Basic needs can adequately be met by self Family / Caregiver's ability to cope with chronic illness: : a. Adequate (ability to meet patient's medical needs, ensures patient attends medical appts.) Physical Status: : Partial care dependence Physical Status: : Mobility impaired Equipment needed for post hospitalization: : None Is there a likelihood that the patient will require additional services to return to the preadmission environment? : No Living Arrangements: : Home with Extended Family Partial Dependence, assistance required for: : Dressing Partial Dependence, assistance required for: : Ambulation / Mobility Patient with capacity for self-care or can be cared for in same environment as prior to hospitalization? : Yes Baseline cognitive status: : *Oriented to person, place, situation, time and present Physical environment modification needed / anticipated for discharge: : No Medication Management: : Patient states can read and understand medication labels Medication Management: : Patient states can afford medications Pharmacy name(s): : [facility]. Does Patient have transportation to get home and to follow-up medical appointments when discharged from the hospital? : Yes Would patient like to participate in any Care Coordination programs (if applicable): : Not applicable Does the patient have electricity at home? : Yes Does the patient have running water in their house? : Yes Equipment in use: : Walker - Rolling Equipment in use: : Shower Chair Equipment in use: : Nebulizer Equipment in use: : Home Oxygen with Nasal Cannula Equipment in use: : CPAP Mental health screen: : No mental health history DCP Re-evaluation QUESTION: ANSWER Would patient like to participate in any Care Coordination programs (if applicable): : Not applicable PATIENT: MAKENNA VALENZUELA ENCOUNTER: [id number] MEDICAL RECORD#: [id number] ADMISSION DATE: 08/26/2020 DISCHARGE DATE: 08/28/2020 ATTENDING MD: AARON TIRADO : AGE: 89 MARITAL STATUS: W DC PLAN ID: [id number] FACILITY: [facility] PRINTED ON: 08/28/20 15:43 CT All edits/amendments must be made on the electronic document DICTATION DATE: 08/28/20 4411 SEAT PACK INSPECTOR: NEVA 08/28/20 1543 RPT#: [id number] DC DATE:08/28/20 STATUS: DIS IN [facility] [address] [place] [address] END OF REPORT
--- NOTE | 2020-08-29 18:04 | MORECARE ---
CASE MANAGEMENT DISCHARGE SUMMARY PATIENT: MAKENNA VALENZUELA UNIT: [id number] ADM DATE: 08/26/20 AGE: 89 : 34 SEX: F ROOM/BED: D.6585 AUTHOR: MARLEEN,DOC PHYSICIAN: REFERRING PHYSICIAN: AARON QUINTANILLA MD DATE OF SERVICE: 08/29/20 Case Management Discharge Planning Summary COMMENTS ENTERED DATE: 08/28/20 15:36 CT COMMENT TYPE: Discharge Planning REVIEWER: Martinez Fisher CM met with patient to complete DC plan and to evaluate needs. Patient lives independently with her daughter, Emily Keys, . Patient stated that her home is safe and has electricity and running water. Patient stated that the home has 4 steps to enter and she is able to manage the steps without difficulty. Patient stated that she has no problems paying for medications and she fills her medications at [facility]. Patient stated that her primary care physician is Dr. Kaye. At discharge, the patient plans to return home and feels this is a safe discharge. CM discussed availability of home health, rehab services, and medical equipment. Patient declined HHS, SNF, IPR, and DME. Patient stated that she has a walker, Shower Bench, Nebulizer, CPAP, and Home oxygen through [facility] [facility]. Patient voiced no other needs at this time and is satisfied with DC plan. Transportation provider at discharge will be with Emily. DC IMM delivered, explained, signed by the patient, and placed in chart. Signed form also left with the patient. CM will continue to follow and will assist as needed with dc plans/needs. DCP REVIEW SUMMARY ANTICIPATED D/C DATE: 08/28/2020 EXPECTED LOS : 2 CASE STATUS: DCP Complete INITIAL REVIEW: 08/26/2020 INITIAL REVIEWER: Martinez Fisher FINAL DISCHARGE DISPOSITION: : FINAL REVIEWER: FINAL REVIEW DATE: DCP Focus Questions & Answers DCP Evaluation QUESTION: ANSWER Patient gives permission to discuss discharge plans with: (name, relationship and number) : daughterEmily, Patient's ability to cope with chronic illness : d. No chronic illness Patient's current cognitive status: : *Oriented to person, place, situation, time and present Family / Caregiver's ability to cope with chronic illness: : a. Adequate (ability to meet patient's medical needs, ensures patient attends medical appts.) Patient and/or caregiver agree upon recommended discharge plan? : Yes Physical Status: : Mobility impaired Physical Status: : Partial care dependence Family / Caregiver's ability to cope with chronic illness: : a. Adequate (ability to meet patient's medical needs, ensures patient attends medical appts.) Functional screen assessment: : Basic needs can adequately be met by self Does the patient have the ability to pay for or attain post discharge needs / services? : Yes Partial Dependence, assistance required for: : Ambulation / Mobility Partial Dependence, assistance required for: : Dressing Living Arrangements: : Home with Extended Family Is there a likelihood that the patient will require additional services to return to the preadmission environment? : No Equipment needed for post hospitalization: : None Baseline cognitive status: : *Oriented to person, place, situation, time and present Patient with capacity for self-care or can be cared for in same environment as prior to hospitalization? : Yes Physical environment modification needed / anticipated for discharge: : No Medication Management: : Patient states can afford medications Medication Management: : Patient states can read and understand medication labels [facility] : [facility] Does Patient have transportation to get home and to follow-up medical appointments when discharged from the hospital? : Yes Would patient like to participate in any Care Coordination programs (if applicable): : Not applicable Does the patient have electricity at home? : Yes Does the patient have running water in their house? : Yes Equipment in use: : CPAP Equipment in use: : Home Oxygen with Nasal Cannula Equipment in use: : Nebulizer Equipment in use: : Shower Chair Equipment in use: : Walker - Rolling Mental health screen: : No mental health history DCP Re-evaluation QUESTION: ANSWER Would patient like to participate in any Care Coordination programs (if applicable): : Not applicable PATIENT: MAKENNA VALENZUELA ENCOUNTER: [id number] MEDICAL RECORD#: [id number] ADMISSION DATE: 08/26/2020 DISCHARGE DATE: 08/28/2020 ATTENDING MD: AARON TIRADO : AGE: 89 MARITAL STATUS: W DC PLAN ID: [id number] FACILITY: [facility] PRINTED ON: 08/29/20 18:04 CT All edits/amendments must be made on the electronic document DICTATION DATE: 08/29/201803 HAND DRILLER: NEVA 08/29/201803 RPT#: [id number] DC DATE:08/28/20 STATUS: DIS IN [id number] [place] [address] END OF REPORT
== END 2020-08-28 11:52 | disposition home or self-care (01) | DRG 309 ==
LOC: D.ER 21:18 → D.EDHOLD 23:57 → OBSVTIME 23:58 → D.M2 08-26 16:31
PROVIDERS: Emergency Medicine; Family Medicine; ADMIT Family Medicine; ATTEND Family Medicine
DX: I48.19 Other persistent atrial fibrillation (principal); N39.0 Urinary tract infection, site not specified; Z79.01 Long term (current) use of anticoagulants; G31.84 Mild cognitive impairment of uncertain or unknown etiology; I10 Essential (primary) hypertension; J44.9 Chronic obstructive pulmonary disease, unspecified; K21.9 Gastro-esophageal reflux disease without esophagitis; M17.0 Bilateral primary osteoarthritis of knee